=== PATIENT | female | born 1955 | race Caucasian/White ===

== ENCOUNTER 2023-02-20 12:52 | Emergency (ER) | payer MEDICARE, SELFPAY ==
--- NOTE | ~2023-02-20 | XR_ITS ---
EXAMINATION: XR knee LT min 4V DATE: 02/20/2023 13:49 INDICATION: Left knee pain several days post fall TECHNIQUE: Anteroposterior, 2 oblique, sunrise and crosstable lateral views of the left knee were obt ained COMPARISON: None. FINDINGS: Alignment is normal. No fracture. Severe medial and patellofemoral compartment predominant tricompar tmental osteoarthritis at the left knee. There are prominent marginal osteophytes about the patella w ith additional loose osteochondral bodies versus heterotopic ossification along its cephalad margin. No evident joint effusion. Some fine dystrophic calcifications and round phleboliths in the soft tiss ues of the visualized calf. IMPRESSION: 1. Severe medial and patellofemoral compartment, tricompartmental osteoarthritis at the left knee. No joint effusion or acute osseous abnormality. Reviewed, dictated and finalized at location A. IMPRESSION: 1. Severe medial and patellofemoral compartment, tricompartmental osteoarthriti s at the left knee. No joint effusion or acute osseous abnormality.
[2023-02-20 13:11] VITALS: BP 142/52; PULSE 89; RESP 16; TEMP 36.1; O2SAT 97
--- NOTE | 2023-02-20 13:16 | ED.LOWEXIN ---
HPI - Extremity Injury (Lower) General Chief Complaint: Extremity Injury, Lower Stated Complaint: Fall Injury, Left Knee Pain History of Present Illness HPI Narrative: PATIENT PRESENTS FOR EVALUATION OF LEFT NEE PAIN PAIN WITH AMBULATION Related Data Home Medications Medication Instructions Recorded Confirmed atorvastatin 40 mg tablet mg 02/20/23 bupropion HCl 300 mg 24 hr tablet, mg PO 02/20/23 extended release buspirone 7.5 mg tablet mg 02/20/23 duloxetine 60 mg capsule,delayed mg PO 02/20/23 release hydrochlorothiazide 50 mg tablet mg 02/20/23 hydrocodone 7.5 mg-acetaminophen tablet 02/20/23 325 mg tablet lorazepam 0.5 mg tablet mg 02/20/23 meloxicam 15 mg tablet mg 02/20/23 metformin 1,000 mg tablet mg 02/20/23 tirzepatide 7.5 mg/0.5 mL mg subcut 02/20/23 subcutaneous pen injector (Mounlandyro) Allergies Allergy/AdvReac Type Severity Reaction Status Date / Time No Known Allergies Allergy Unverified 04/26/18 18:03 Review of Systems Review of Systems: CONSTITUTIONAL: DENIES FEVER, CHILLS, OR SWEATS. EYES: DENIES VISUAL CHANGES, REDNESS, OR DISCHARGE. ENT: DENIES RHINORRHEA, CONGESTION, SORE THROAT, OR OTALGIA. CARDIOVASCULAR: DENIES CHEST PAIN, PALPITATIONS, OR EDEMA. RESPIRATORY: DENIES COUGH OR DYSPNEA. GASTROINTESTINAL: DENIES ABDOMINAL PAIN, NAUSEA, VOMITING, OR DIARRHEA. GENITOURINARY: DENIES DYSURIA OR HEMATURIA. SKIN: DENIES RASH OR ITCHING. MUSCULOSKELETAL: DENIES BACK PAIN, JOINT PAIN, OR MYALGIA. NEUROLOGIC: DENIES HEADACHE, NUMBNESS, OR WEAKNESS. PSYCHIATRIC: DENIES ANXIETY OR DEPRESSION. PMFSH Comments AT TIME OF SIGNATURE, AGREE WITH NURSING PAST MEDICAL, SURGICAL, SOCIAL AND FAMILY HISTORY. THERE IS NO RELEVANT FAMILY HISTORY PERTINENT TO THE PRESENTING COMPLAINT Exam Narrative: GENERAL: WELL-APPEARING, WELL-NOURISHED, AND IN NO ACUTE DISTRESS. HEAD: NORMOCEPHALIC, ATRAUMATIC. EYES: PERRLA AND EOMI. ENT: NARES CLEAR, NO RHINORRHEA OR EPISTAXIS. MUCOUS MEMBRANES MOIST. NECK: SUPPLE. CHEST: CLEAR TO AUSCULTATION. NO RESPIRATORY DISTRESS. HEART: REGULAR RATE AND RHYTHM. NO MURMUR HEARD. NORMAL PERIPHERAL PULSES. ABDOMEN: SOFT, NONTENDER, NONDISTENDED, NORMAL ACTIVE BOWEL SOUNDS. EXTREMITIES: NORMAL RANGE OF MOTION. NO EDEMA.GENERAL: WELL-APPEARING, WELL-NOURISHED, AND IN NO ACUTE DISTRESS. HEAD: NORMOCEPHALIC, ATRAUMATIC. EYES: PERRLA AND EOMI. ENT: NARES CLEAR, NO RHINORRHEA OR EPISTAXIS. MUCOUS MEMBRANES MOIST. NECK: SUPPLE. CHEST: CLEAR TO AUSCULTATION. NO RESPIRATORY DISTRESS. HEART: REGULAR RATE AND RHYTHM. NO MURMUR HEARD. NORMAL PERIPHERAL PULSES. ABDOMEN: SOFT, NONTENDER, NONDISTENDED, NORMAL ACTIVE BOWEL SOUNDS. EXTREMITIES: NORMAL RANGE OF MOTION. NO EDEMA. SKIN: WARM, DRY, NO RASH. NEURO: NO FOCAL DEFICITS. ALERT AND ORIENTED X3. ABHISHEK COMA SCALE EYE OPENING: SPONTANEOUS 4 ABHISHEK COMA SCALE MOTOR: OBEYS COMMANDS 6 ABHISHEK COMA SCALE VERBAL: ORIENTED 5 ABHISHEK COMA SCALE TOTAL 15 SKIN: WARM, DRY, NO RASH. NEURO: NO FOCAL DEFICITS. ALERT AND ORIENTED X3. ABHISHEK COMA SCALE EYE OPENING: SPONTANEOUS 4 ABHISHEK COMA SCALE MOTOR: OBEYS COMMANDS 6 ABHISHEK COMA SCALE VERBAL: ORIENTED 5 ABHISHEK COMA SCALE TOTAL 15 Course Course Level of Care: Express Care Visit Vital Signs Vital signs: Vital Signs Temperature 36.1 C L 02/20/23 13:11 Pulse Rate 89 02/20/23 13:11 Respiratory Rate 16 02/20/23 13:11 Blood Pressure 142/52 H 02/20/23 13:11 Pulse Oximetry 97 02/20/23 13:11 Oxygen Delivery Room Air 02/20/23 13:11 Temperature 36.1 C L 02/20/23 13:11 Pulse Rate 89 02/20/23 13:11 Respiratory Rate 16 02/20/23 13:11 Blood Pressure 142/52 H 02/20/23 13:11 Pulse Oximetry 97 02/20/23 13:11 Oxygen Delivery Room Air 02/20/23 13:11 PLEASE RUIZ SCHEDULE A FOLLOWUP VISIT WITH YOUR PERSONAL PHYSICIAN FOR FURTHER EVALUATION AND TREATMENT. INCLUDING RECHECK AND DISCUSSION OF YOUR BLOOD PRESSURE. IF YOUR SYMPTOMS PER
== END 2023-02-20 14:21 | disposition home or self-care (01) ==
PROVIDERS: Emergency Provider Nurse Practitioner Family
DX: S80.02XA Contusion of left knee, initial encounter (principal); Z79.899 Other long term (current) drug therapy; Z79.1 Long term (current) use of non-steroidal anti-inflammatories (NSAID); Z79.84 Long term (current) use of oral hypoglycemic drugs; W19.XXXA Unspecified fall, initial encounter
CPT/HCPCS: 73564; 99203; G0463

== ENCOUNTER 2024-09-14 13:29 | Outpatient (CLI) | payer OTHER, SELFPAY ==
--- OUTSIDE RECORDS SUMMARY | 2024-09-14 13:39 | XMS_ITS ---
Author Organization [facility] Address [address] [place] [address] Care Team Providers Care Grade Teacher Name Role Phone Maximus Doan MD PhD Unavailable Morena Quach NP Unavailable [phone] Gillian Perea MD Primary Care Provider Active Problems Problem Noted Date Diagnosed Date Generalized weakness 06/21/2024 Fall 06/21/2024 Screening for colon cancer 02/24/2024 Dyspepsia 02/24/2024 Nausea 02/24/2024 Hyperkalemia 08/26/2022 Assessment & Plan (08/26/2022 10:16 AM CDT): Hold lisinopril, hydrate well, and recheck labs in 2-3 days. Elevated serum creatinine 08/26/2022 Assessment & Plan (08/26/2022 10:16 AM CDT): Hold lisinopril, hydrate well, and recheck labs in 2-3 days. Elevated triglycerides with high cholesterol 01/2023 Assessment & Plan (08/26/2022 10:17 AM CDT): Continue atorvastatin and work on low carb/diabetic diet. Elevated TSH 08/26/2022 Assessment & Plan (08/26/2022 10:17 AM CDT): Elevated TSH with normal T4. Discussed symptoms that would warrant further investigation but none currently, so will just monitor. Chronic right shoulder pain 08/19/2022 Assessment & Plan (08/19/2022 10:57 AM CDT): Ongoing a few months, worsened in the last week or so. Recommend seeing her ortho this week for eval/treatment. Annual physical exam 08/19/2022 Assessment & Plan (08/19/2022 11:00 AM CDT): Annual mamm and WWE DEXA due Flu shot annually Tdap due-we are out of stock today but we discussed Shingrix completed 2021 Prevnar 20 today COVID vaccinated C scope due 2023 Generally in good health. HM updated as per overview. Check routine labwork. Discussed proper diet, regular exercise, adequate water intake, adequate sleep. Information given on health maintenance. Vitamin D deficiency 08/19/2022 Assessment & Plan (08/19/2022 11:01 AM CDT): Supposed to take once weekly but has not been consistently. Subjective memory complaints 03/11/2022 Assessment & Plan (08/19/2022 10:57 AM CDT): Saw Dr. Pacheco for this. [place] to be secondary to gabapentin. Morbid (severe) obesity due to excess calories 0 07/15/2021 Assessment & Plan (08/19/2022 10:55 AM CDT): Not exercising or eating well since her mom got sick. Body mass index (BMI) 45.0-49.9, adult 2 Essential tremor 07/12/2020 Assessment & Plan (08/19/2022 10:58 AM CDT): No meds, very slight right now. DM type 2 with diabetic peripheral neuropathy (C MS/HCC) 07/12/2020 Assessment & Plan (08/26/2022 10:15 AM CDT): She is working on getting Mounjaro, needs PA. Assessment & Plan (08/19/2022 11:03 AM CDT): On gabapentin. Foot exam done today. Taking metformin and glipizide. Has not noticed much difference with Ozempic. Discussed Mounjaro. Follow up pending A1C results and ability to get Mounjaro. On ACEI and statin. 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 Mixed anxiety depressive disorder 09/25/2014 Overview (07/23/2016): DEPRESSION AND ANXIETY Assessment & Plan (08/19/2022 10:56 AM CDT): Uncontrolled since her mom became ill. Increase bupropion to 300mg. Intervertebral disc rupture 09/02/2013 Overview (07/22/2016): Ruptured lumbar disc Asthma 09/02/2013 Overview (07/22/2016): ASTHMA NOS Assessment & Plan (08/19/2022 10:58 AM CDT): On Symbicort and has prn albuterol. Leucocytosis 09/02/2013 Overview (07/22/2016): Leukocytosis Assessment & Plan (08/26/2022 10:15 AM CDT): Referral placed to hematology. Irritable bowel syndrome 09/02/2013 Overview (07/23/2016): IRRITABLE BOWEL SYNDROME Assessment & Plan (08/19/2022 10:55 AM CDT): Takes lomotil and welchol. Next c scope 2023. History of basal cell carcinoma 09/02/2013 Overview (07/23/2016): History of basal cell cancer Assessment & Plan (08/19/2022 10:11 AM CDT): Sees Dr Ritter derm Glaucoma 09/02/2013 Overview (07/24/2016): GLAUCOMA NOS Assessment & Plan (08/19/2022 10:09 AM CDT): Follows with Dr. Graf. Atopic rhinitis 09/02/2013 Overview (07/24/2016): ALLERGIC RHINITIS NOS Assessment & Plan (08/19/2022 10:09 AM CDT): No meds. More weather/seasonal related. Osteoarthritis 09/02/2013 Overview (07/24/2016): OA (osteoarthritis) Assessment & Plan (08/19/2022 10:56 AM CDT): Takes meloxicam, gabapentin, and gets injections in her knee. Status post endometrial ablation 01/09/2011 Actinic keratosis 11/10/2010 Current Treatment and Therapy Plans No current plan information found. Past Treatment and Therapy Plans No past plan information found. Lifetime Dose Tracking * Chemical Lifetime Dose Automatic Entry Manual Entr y Fluoro Time 16.481 minutes 16.481 minutes 0 minutes Air kerma at the reference point (Ka,r) 73.456 mGy 7 3.456 mGy 0 mGy DLP 213 mGycm 213 mGycm 0 mGycm Resolved Problems Problem Noted Date Diagnosed Date Resolved Date Fatigue 07/12/2020 08/19/2022 Memory loss 07/12/2020 08/19/2022 Dyspepsia 05/17/2018 08/19/2022 Overview (05/17/2018): Added automatically from request for surgery [id number] Foreign body in right ear 03/18/2018 No diagnosis on [place] 01/24/201808/19 Bilateral sciatica 01/17/2018 Elevated hemoglobin A1c 09/25/2014 05/06/2022 Overview (07/24/2016): High hemoglobin A1c level Chronic sinusitis 09/02/2013 08/19/2022 Overview (07/23/2016): Chronic sinusitis Adiposity 09/02/2013 08/19/2022 Overview (07/24/2016): Obesity Arthritis 08/19/2022 Leg pain 08/19/2022 Knee pain 08/19/2022 Pain in both feet 08/19/2022
--- OUTSIDE RECORDS SUMMARY | 2024-09-14 13:39 | XMS_ITS | Encounter Summary ---
Author Organization [facility] Healthcare Address [address] [place] [address] Care Team Providers Care Business Excellence Leader Name Role Phone Michael Castaneda MD Primary Care Provider [phone] Luisa Hope MD Primary Care Provider [phone] Wai De Oliveira MD Primary Care Provider [phone] Luisa Hope MD Primary Care Provider + [phone] Maximus Doan MD PhD Unavailable [phone] Morena Quach HEPATOLOGIST Unavailable [phone] Unknown, Notinfile Primary Care Provider Unavail able Gillian Perea MD Primary Care Provider Gillian Perea MD Primary Care Provider [phone] Juliana Silva [facility] Unavailable Encounter Details Date Type Department Care Team (Late st Contact Info) Description 08/02/[address] [facility] [address] [place] [address] Bora Reddy, RT Social History Tobacco Use Types Packs/Day Years Used Date Smoking Tobacco: Never Smokeless Tobacco: Never Alcohol Use Standard Drinks/Week Comments Yes 0 (1 standard drink = 0.6 oz pur e alcohol) Comments No Sex and Gender Information Value Date Recorded Sex Assigned at Not on file Legal Sex Female 11:31 PM ACCREDITATION MANAGER Gender Identity Female 07/02/2020 10:11 AM CDT Sexual Orientation Straight 07/02/2020 10 :11 AM CDT documented as of this encounter Plan of Treatment Not on file documented as of this encounter Goals Goal Patient Goal Type Associated Problems Recent Progress Patient-Stated? Author CCM Chronic Pain Care Plan Chronic Care Management Coni Sparks Note: Problem: Chronic Pain Goals: 1. Minimize further functional decline 2. Maximize quality of life 3. Control pain Strategies: - Activity/exercise program recommendation - Conservative stepwise pain medicine strategy with multi-disciplinary approach - Recommend healthy lifestyle strategies and compensatory methods as needed documented as of this encounter Visit Diagnoses Not on filedocumented in this encounter Additional Health Concerns Infection Onset Date Last Indicated Resolved Time COVID: Suspected 06/20/2024 06/20/2024 06/20/2024 11:58 PM ACCREDITATION MANAGER documented as of this encounter Care Teams Business Excellence Leader Relationship Specialty Start Date End Date Michael Castaneda MD PCP - General 06/17/16 11/25/20 Luisa Hope MD PCP - General Family Medicine 11/26/20 02/01/22 Wai De Oliveira MD [address] [place] [address] PCP - General Internal Medicine 02/02/22 03/30/22 Luisa Hope MD [address] [place] [address] PCP - General Family Medicine 03/31/22 11/09/22 Unknown, Notinfile PCP - General 12/29/22 02/14/23 Gillian Perea MD [address] [place] [address] PCP - General Family Medicine 02/15/23 04/13/23 Gillian Perea MD [address] [facility] [address] [address] PCP - General Family Medicine 04/14/23 Maximus Doan MD PhD [address] [place], [place] [id number] Medical Oncologist/Field Sales Specialist Hematology and Oncology 08/28/22 Morena Quach NP [address] [place] [address] Nurse Practitioner Internal Medicine 08/28/22 Juliana Silva, [address] [place] [address] Pharmacist Pharmacy 11/12/23 01/11/24 documented as of this encounter
--- OUTSIDE RECORDS SUMMARY | 2024-09-14 13:39 | XMS_ITS | Encounter Summary ---
Author Organization [facility] Healthcare Address [address] [place] [address] Care Team Providers Care Results Technician Name Role Phone Maximus Doan MD PhD Unavailable [phone] Morena Quach NP Unavailable [phone] Gillian Perea MD Primary Care Provider Reason for Visit * Reason Comments Chart Review Med rec Encounter Details Date Type Department Care Team (Late st Contact Info) Description 09/13/2024 ACO Quality [facility] Accountable Care Organization [address] [place], [place] [id number] Farida Pabon MA [address] [place] [address] [address] [place], [place] [id number] Social History Tobacco Use Types Packs/Day Years Used Date Smoking Tobacco: Never Smokeless Tobacco: Never Alcohol Use Standard Drinks/Week Comments Yes 0 (1 standard drink = 0.6 oz pur e alcohol) [facility] Utilities Answer Date Recorded In the past 12 months has [employer], gas, oil, or water Bleacher Report threatened to shut off services in your home? No 06/21/2024 Social Connection and Isolat ion Panel [NHANES] Answer Date Recorded In a typical week, how many times do you talk on the phone with family, friends, or neighbors? More than three times a week 06/21/2024 How often do you get togethe r with friends or relatives? More than three times a week 06/21/2024 How often do you attend [facility] or latter-day services? More than 4 times per year 06/21/2024 Do you belong to any clubs o r organizations such as anabaptist groups, unions, fraternal or athletic groups, or school groups? No 06/21/2024 How often do you attend meet ings of the clubs or organizations you belong to? Never 06/21/2024 Are you , , di vorced, , never , or living with a partner? 06/21/2024 Overall Financial Resource Strain (CARDIA) Answe r Date Recorded How hard is it for you to pa y for the very basics like food, housing, medical care, and heating? Not hard at all 06/21/2024 PHQ-2 Answer Date Recorded PHQ-2 Total Score (If total score is 3 or more points, staff should administer the PHQ-9) 0 01/11/2024 Hunger Vital Sign Answer Date Recorded Within the past 12 months, y ou worried that your food would run out before you got the money to buy more. Never true 06/22/19 25 Within the past 12 months, t he food you bought just didn't last and you didn't have money to get more. Never true 06/21/2024 PRAPARE - Transportation Answer Date Re corded In the past 12 months, has l ack of transportation kept you from medical appointments or from getting medications? No 08/2024 In the past 12 months, has l ack of transportation kept you from meetings, work, or from getting things needed for daily living? No 06/21/2024 Housing Stability Vital Sign Answer [place] e Recorded In the last 12 months, was t here a time when you were not able to pay the mortgage or rent on time? No 06/21/2024 In the past 12 months, how m any times have you moved where you were living? 0 06/21/2024 At any time in the past 12 m [facility], were you homeless or living in a jail (including now)? No 06/21/2024 Personal Safety Answer Date Recorded Have you ever been in or are you currently in a harmful physical or emotional relationship or is someone making you feel afraid or unsafe? 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 Author CCM Chronic Pain Care Plan Chronic Care Management No Coni Cast Note: Problem: Chronic Pain Goals: 1. Minimize further functional decline 2. Maximize quality of life 3. Control pain Strategies: - Activity/exercise program recommendation - Conservative stepwise pain medicine strategy with multi-disciplinary approach - Recommend healthy lifestyle strategies and compensatory methods as needed documented as of this encounter Visit Diagnoses Not on filedocumented in this encounter Care Teams Results Technician Relationship Specialty Start Date End Date Gillian Perea MD [address] [place] [address] [address] PCP - General Family Medicine 04/14/23 Maximus Doan MD PhD [address] [place] [address] Medical Oncologist/Scrap Sorter Hematology and Oncology 08/28/22 Morena Quach NP [address] [place] [address] Nurse Practitioner Internal Medicine 08/28/22 documented as of this encounter
--- OUTSIDE RECORDS SUMMARY | 2024-09-14 13:39 | XMS_ITS | Encounter Summary ---
Author Organization [facility] Healthcare Address [address] [place] [address] Care Team Providers Care Director Of State Name Role Phone Michael Castaneda MD Primary Care Provider [phone] Luisa Hope MD Primary Care Provider [phone] Wai De Oliveira MD Primary Care Provider [phone] Luisa Hope MD Primary Care Provider [phone] Maximus Doan MD PhD Unavailable Morena Quach OVERSEER [employer] Unavailable [phone] Unknown, Notinfile Primary Care Provider Unavail able Gillian Perea MD Primary Care Provider Gillian Perea MD Primary Care Provider Juliana Silva [facility] Unavailable Encounter Details Date Type Department Care Team (Late st Contact Info) Description 12/07/2019 Telephone [facility]) [address] [place] [address] Christopher Mathews, RT Social History Tobacco Use Types Packs/Day Years Used Date Smoking Tobacco: Never Smokeless Tobacco: Never Alcohol Use Standard Drinks/Week Comments Yes 0 (1 standard drink = 0.6 oz pur e alcohol) Comments No Sex and Gender Information Value Date Recorded Sex Assigned at Not on file Legal Sex Female 11:31 PM PLATING EQUIPMENT TENDER Gender Identity Female 07/02/2020 10:11 AM CDT [...] Date Last Indicated Resolved Time COVID: Suspected 12/08/2019 12/08/2019 12/09/2019 2:26 PM CDT Respiratory Infection ([place]), contact + droplet Comment:Automatically added due to negative COVID-19 result. 12/09/2019 12/09/2019 12/23/2019 3:0 5 AM CDT COVID: Suspected 03/11/2020 03/11/2020 03/12/2020 5:21 AM PLATING EQUIPMENT TENDER Respiratory Infection ([place]), contact + droplet Comment:Automatically added due to negative COVID-19 result. 03/12/2020 03/12/2020 03/26/2020 3:0 6 AM PLATING EQUIPMENT TENDER COVID: Suspected 03/14/2020 03/14/2020 03/15/2020 5:45 AM PLATING EQUIPMENT TENDER COVID: Suspected 03/20/2020 03/20/2020 03/21/2020 10:52 PM PLATING EQUIPMENT TENDER COVID: Suspected 06/20/2024 06/20/2024 06/20/2024 11:58 PM PLATING EQUIPMENT TENDER documented as of this encounter Care Teams Director Of State Relationship Specialty Start Date End Date Michael Castaneda MD PCP - General 06/17/16 11/25/20 Luisa Hope MD PCP - General Family Medicine 11/26/20 02/01/22 Wai De Oliveira MD [address] [address] PCP - General Internal Medicine 02/02/22 03/30/22 Luisa Hope MD [address] [facility] [address] [place] [address] PCP - General Family Medicine 03/31/22 11/09/22 Unknown, Notinfile PCP - General 12/29/22 02/14/23 Gillian Perea MD [address] [facility] [address], [place] [address] PCP - General Family Medicine 02/15/23 04/13/23 Gillian Perea MD [address] [facility] [address] [place] [address] PCP - General Family Medicine 04/14/23 Maximus Doan MD PhD [address] [place] [address] Medical Oncologist/Dietary Supervisor Hematology and Oncology 08/28/22 Morena Quach NP [address] [place] [address] Nurse Practitioner Internal Medicine 08/28/22 Juliana Silva, [address] [place] [address] Pharmacist Pharmacy 11/12/23 01/11/24 documented as of this encounter
--- OUTSIDE RECORDS SUMMARY | 2024-09-14 13:39 | XMS_ITS | Encounter Summary ---
Author Organization [facility] Healthcare Address [address] [place] [address] Care Team Providers Care Security Shift Manager Name Role Phone Luisa Hope MD Primary Care Provider [phone] Wai De Oliveira MD Primary Care Provider [phone] Luisa Hope MD Primary Care Provider [phone] Maximus Doan MD PhD Unavailable Morena Quach [employer] TE[employer] Unavailable [phone] Unknown, Notinfile Primary Care Provider Unavail able Gillian Perea MD Primary Care Provider Gillian Perea MD Primary Care Provider Juliana Silva [facility] Unavailable Encounter Details Date Type Department Care Team (Late st Contact Info) Description 02/28/2021 Telephone [facility] [place] [address] Morena Lamar, RT Social History Tobacco Use Types Packs/Day Years Used Date Smoking Tobacco: Never Smokeless Tobacco: Never Alcohol Use Standard Drinks/Week Comments Yes 0 (1 standard drink = 0.6 oz pur e alcohol) PHQ-2 Answer Date Recorded PHQ-2 Total Score (If total score is 3 or more points, staff should administer the PHQ-9) 0 11/26/2020 Comments No Sex and Gender Information Value Date Recorded Sex Assigned at Not on file Legal Sex Female 11:31 PM MANAGER FOREIGN Gender Identity Female 07/02/2020 10:11 AM CDT [...] COVID: Suspected 06/20/2024 06/20/2024 06/20/2024 11:58 PM MANAGER FOREIGN documented as of this encounter Care Teams Security Shift Manager Relationship Specialty Start Date End Date Luisa Hope MD PCP - General Family Medicine 11/26/20 02/01/22 Wai De Oliveira MD [address] [place] [address] PCP - General Internal Medicine 02/02/22 03/30/22 Luisa Hope MD [address], [place] [address] PCP - General Family Medicine 03/31/22 11/09/22 Unknown, Notinfile PCP - General 12/29/22 02/14/23 Gillian Perea MD [address], [place] [address] PCP - General Family Medicine 02/15/23 04/13/23 Gillian Perea MD [address] [facility] [address], [place] [address] PCP - General Family Medicine 04/14/23 Maximus Doan MD PhD [address] [place] [address] Medical Oncologist/Client Engagement Manager Hematology and Oncology 08/28/22 Morena Quach NP [address] [place] [address] Nurse Practitioner Internal Medicine 08/28/22 Juliana Silva [address] [place] [address] Pharmacist Pharmacy 11/12/23 01/11/24 documented as of this encounter
--- OUTSIDE RECORDS SUMMARY | 2024-09-14 13:40 | XMS_ITS | Referral Summary ---
Author Organization [facility] al Address [address] [place] [address] Care Team Providers Care Contractor Buyer Name Role Phone Maximus Doan MD PhD Unavailable Morena Quach NP Unavailable [phone] Gillian Perea MD Primary Care Provider Encounters Date Type Department Care Team Description 09/13/2024 ACO Quality [facility] Accountable Care Organization [address] [place] [address] Farida Pabon MA 09/08/2024 Telephone [facility] Medical Group Primary Care at [address] [place] [phone] Gillian Perea MD Medical Records Request 09/01/2024 Telephone [facility] Primary Care at [address] [place] [phone] Gillian Perea MD 08/21/2024 Telephone [facility] Orthopaedic Surgery [address] [place] [address] Advanced Medicine 6th [place] [address] [place] [phone] Jevon Fonseca MD 08/21/2024 3:20 PM CDT Office Visit [facility] Orthopaedic Surgery [facility] Advanced Medicine 6th [place] [address] [place] [phone] Jevon Fonseca MD Chronic pain of both knees (Primary Dx) 08/18/2024 Telephone [facility] Accountable Care Organization [address] [place] [address] Talia Joyce Unsuccessful Phone Call 1 (Essence dm eye exam) 08/17/2024 Telephone [facility] Medical Group Orthopedics and Sports Medicine at [address] [phone] Jimi Max MD 08/12/2024 ACO Quality [facility] Care [address] [address] Talia Joyce 08/11/2024 Telephone [facility] Primary Care at [address] [phone] Gillian Perea MD Referral Request 07/27/2024 Telephone [facility] Primary Care at [address] [phone] Gillian Perea MD Symptom Based Call 07/18/2024 ACO Clinical Pharmacist [address] [address] Juliana Silva [facility] 2024 Telephone [facility] Primary Care at [address] [phone] Gillian Perea MD Symptom Based Call 07/12/2024 Orders Only [facility] Medical [facility] Primary Care at [address] [place] [phone] Gillian Perea MD Moderate asthma, unspecified whether complicated, unspecified whether persistent (Primary Dx); Shortness of breath 07/12/2024 Telephone [facility] Primary Care at [address] [phone] Gillian Perea MD Medical Question/Miscellane ous 07/10/2024 Telephone [facility] Primary Care at [facility] [address], [place] [address] Gillian Perea MD Med Refill 07/10/2024 3:56 PM CDT - 07/10/2024 11:59 PM CDT Hospital Encounter [facility] - Imaging [address] [place] [address] Moderate asthma, unspecified whether complicated, unspecified whether persistent Discharge Disposition: Discharge to home or self care 07/10/2024 2:30 PM CDT Office Visit [facility] Medical [facility] Primary Care at [facility] [address], [place] [address] Gillian Perea MD Moderate asthma, unspecified whether complicated, unspecified whether persistent (Primary Dx); Obesity (BMI 35.0-39.9 without comorbidity) 07/07/2024 Nurse Triage [facility] Medical [facility] Primary Care at [place] [phone], [place] [address] Gillian Perea MD Moderate persistent asthma without complication 07/03/2024 Telephone [facility] Medical [facility] Primary Care at [place] [address], [place] [address] Gillian Perea MD Medical Question/Miscellane ous 06/22/2024 COOKIE IP Outreach [facility] Accountable Care Organization [address] [place] [address] Noreen Wharton MA 06/22/2024 Telephone [facility] [address] [place] [phone] Olesya Dickerson, RN 06/22/2024 Telephone [facility] [address] [place] [phone] Olesya Dickerson, RN 06/20/2024 9:17 PM INVERFORM MACHINE OPERATOR - 06/21/2024 6:35 PM INVERFORM MACHINE OPERATOR Hospital Encounter [facility] [address] [place] [address] Anamika Barbosa MD Shimotani, Dorian Genki, DO Jain, Anshu, MD Fall, initial encounter (Primary Dx); Dizziness; Generalized weakness Discharge Disposition: Left Against Medical Advice 06/20/2024 5:47 PM INVERFORM MACHINE OPERATOR - 06/20/2024 11:59 PM INVERFORM MACHINE OPERATOR Hospital Encounter [facility] Emergency, Room R Discharge Disposition: Discharge to home or self care 06/19/2024 Telephone [facility] Medical Group Primary Care at [facility] [address] [place] [address] Gillian Perea MD Referral Request from Last 3 Months Allergies Active Allergy Reactions Criticality Noted Date Comments Amoxicillin Diarrhea Low Reaction: Diarrhea, Amoxicillin-Pot Clavulanate Diarrhea Low 05/03/2023 Barium-Methylcellulose Swelling High 09/05/2019 Throat swelling after oral contrast Furosemide Other (See comments) Low 10/29/2014 Red Dye Other (See comments) Low 10/29/2008 Tetracyclines Rash Medium 10/29/2014 Medications cyanocobalamin (Vitamin B-12) 1,000 mcg tabletIndications :Prevention of Vitamin B12 Deficiency Take 1 tablet (1,000 mcg total) by mouth daily Active busPIRone (BUSPAR) 15 mg tabletIndications :Generalized Anxiety Disorder Take 1 tablet (15 mg total) by mouth 2 (two) times a day 180 tablet 3 024 Active hydroCHLOROthiazi de (HYDRODIURIL) 50 mg tabletIndications :Leg swelling,Primary hypertension TAKE 1 TABLET(50 MG) BY MOUTH DAILY 90 tablet 3 024 Active colesevelam (WELCHOL) 625 mg tablet Take 2 tablets (1,250 mg total) by mouth 2 (two) times a day with meals 360 tablet 3 024 Active meloxicam (MOBIC) 15 mg tabletIndications :Chronic lumbar radiculopathy TAKE 1 TABLET(15 MG) BY MOUTH DAILY 100 tablet 1 024 Active tirzepatide (Mounjaro) 12.5 mg/0.5 mL pen injector injectionIndicati ons:type 2 diabetes mellitus Inject 0.5 mL (12.5 mg total) under the skin every 7 days 9 mL 1 025 Active Additional Information Patient taking differently:12.5 mg subcutaneous Every 7 days,Last dose 6 months ago, Indications: type 2 diabetes mellitus, Reported on 08/21/2024 cholecalciferol (VITAMIN D-3) 50,000 unit capsule Take 1 capsule (50,000 Units total) by mouth once a week 12 capsule 3 025 2025 Active Additional Information Patient taking differently:50,000 Units oral Weekly,Sundays, Reported on 08/21/2024 atorvastatin (LIPITOR) 40 mg tablet Take 1 tablet (40 mg total) by mouth daily Active gabapentin (NEURONTIN) 600 mg tablet Take 1 tablet (600 mg total) by mouth 2 (two) times a day Active hydrOXYzine (VISTARIL) 25 mg capsule Take 1 capsule (25 mg total) by mouth 3 (three) times a day as needed for itching Active buPROPion XL (WELLBUTRIN XL) 300 mg 24 hr tablet TAKE 1 TABLET(300 MG) BY MOUTH EVERY MORNING 100 tablet 1 025 Active diphenoxylate-atr opine (LOMOTIL) 2.5-0.025 mg per tabletIndications :diarrhea Take 1 tablet by mouth 2 (two) times a day with meals 30 tablet 025 Active budesonide-formot Antonio (SYMBICORT) 160-4.5 mcg/actuation inhaler Inhale 2 puffs 2 (two) times a day as needed (SOB) Rinse mouth with water after use. Do not swallow. 1 each 3 Active albuterol HFA (ProAir HFA) 90 mcg/actuation inhalerIndication s:Moderate persistent asthma without complication Inhale 2 puffs every 4 (four) hours as needed for wheezing or shortness of breath 1 each 3 025 2025 Active ondansetron ODT (ZOFRAN-ODT) 4 mg disintegrating tablet DISSOLVE 1 TABLET ON THE TONGUE EVERY 6 HOURS NEEDED FOR NAUSEA 025 Active predniSONE (DELTASONE) 10 mg tablet 4 tabs for 4, 3 tabs 4 days, 2 tabs for 4 days 36 tablet 025 Active cefpodoxime (VANTIN) 200 mg tablet Take 1 tablet (200 mg total) by mouth 2 (two) times a day 14 tablet 025 Active ipratropium (ATROVENT) 0.02 % nebulizer solutionIndicatio ns:Maintenance Therapy for Asthma Take 2.5 mL (0.5 mg total) by nebulization 4 (four) times a day as needed for wheezing or shortness of breath 187.5 mL 4 025 Active fluconazole (DIFLUCAN) 150 mg tablet Take 1 tablet (150 mg total) by mouth daily Take one tab now. Repeat in 7 days if symptoms persist. 2 tablet 025 Active HYDROcodone-aceta minophen (NORCO) 7.5-325 mg per tabletIndications :Pain Take 1 tablet by mouth every 6 (six) hours as needed for pain 120 tablet 025 Active metFORMIN (GLUCOPHAGE) 1,000 mg tablet TAKE 1 TABLET(1000 MG) BY MOUTH TWICE DAILY WITH MEALS 180 tablet 3 025 Active ergocalciferol (VITAMIN D) 50,000 unit capsuleIndication s:Low back pain with radiation,Chronic pain syndrome TAKE 1 CAPSULE (50,000 UNITS TOTAL) BY MOUTH ONCE A WEEK FOR 12 WEEKS [address] capsule [address] (CYMBALTA) 30 mg capsule TAKE 1 CAPSULE(30 MG) BY MOUTH DAILY 90 capsule [address] (CYMBALTA) 30 mg capsule Take 3 capsules (90 mg total) by mouth nightly 2024 Discontinued Active Problems Problem Noted Date Diagnosed Date [...] AM CDT): Saw Dr. Pacheco for this. [place] to be secondary to gabapentin. Morbid (severe) [...] AM CDT): She is working on getting mine Rios PA. Assessment & Plan (08/19/2022 11:03 AM CDT): On gabapentin. Foot exam done today. Taking metformin and glipizide. Has not noticed much difference with Ozempic. Discussed Gabriel. Follow up pending A1C results and ability to get Eligiounlandyro. On ACEI and statin. Other chronic pain [...] post endometrial ablation 01/09/2011 Actinic keratosis 11/10/2010 Resolved Problems Problem Noted Date Diagnosed Date Resolved Date Fatigue 07/12/2020 08/19/2022 Memory loss 07/12/2020 08/19/2022 Dyspepsia 05/17/2018 08/19/2022 Overview (05/17/2018): Added automatically from request for surgery [id number] Foreign body in right ear 03/18/2018 No diagnosis on [place] I 01/24/201808/19 Bilateral sciatica 01/17/2018 Elevated hemoglobin A1c 09/25/2014 05/06/2022 Overview (07/24/2016): High hemoglobin A1c level Chronic sinusitis 09/02/2013 08/19/2022 Overview (07/23/2016): Chronic sinusitis Adiposity 09/02/2013 08/19/2022 Overview (07/24/2016): Obesity Arthritis 08/19/2022 Leg pain 08/19/2022 Knee pain 08/19/2022 Pain in both feet 08/19/2022 Immunizations Immunization Administration Dates Next Due Influenza, Quadrivalent, Hig h Dose, Preservative Free, Intrr 02/15/2023 Influenza, Quadrivalent, Spl it, Preservative Free, Intramuscular 02/02/2022 Influenza, Split 01/17/2010 Influenza, Trivalent, Adjuva nted, Intramuscular 02/12/2024 Influenza, Trivalent, IM (MDV) 02/08/2021,2012,02/12/2012 Influenza, Trivalent, Split, Preservative Free, Intradermal 12/18/2013 Influenza, Unspecified 01/11/2024(Deferr ed: Patient Refused),01/17/2021,01/18/2020 Pfizer SARS-CoV-2 Monovalent Vaccination (12+ Yrs) PURPLE 04/26/2020,04/08/2020 Pneumococcal Conjugate Pcv20 08/19/2022 Pneumococcal Polysaccharide PPV23 02/27/2021 Tdap 01/21/2011 ZOSTER Recombinant 06/28/2021,06/17/2021, 022 Social History Tobacco Use Types Packs/Day Years Used Date Smoking Tobacco: Never Smokeless Tobacco: Never Tobacco Cessation:Counseling Given: Not Answered Alcohol Use Standard Drinks/Week Comments Yes 0 (1 standard drink = 0.6 oz pur e alcohol) [facility] Utilities Answer Date Recorded In the past 12 months has th e electric, gas, oil, or water company threatened to shut off services in your [...] week 06/21/2024 How often do you attend chur ch or worship services? More than 4 times per year 06/21/2024 Do you belong to any clubs o r organizations such as restorationist groups, unions, fraternal or athletic groups, or [...] No 06/21/2024 Housing Stability Vital Sign Answer Augusto e Recorded In the last 12 months, was t here a time when you were not able to pay the mortgage or rent on time? No 06/21/2024 In the past 12 months, how m any times have you moved where you were living? 0 06/21/2024 At any time in the past 12 m [facility], were you homeless or living in a snf (including now)? No 06/21/2024 Personal Safety Answer Date Recorded Have you ever been in or are you currently in a harmful physical or emotional relationship or is someone making you feel afraid or unsafe? 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 file Not on file Not on file Last Filed Vital Signs Vital Sign Reading Time Taken Comments Blood Pressure 148/66 07/10/2024 2:58 PM CDT Pulse 88 07/10/2024 2:58 PM CDT Temperature 36.1 C (97 F) 07/10/2024 2:58 PM CDT Respiratory Rate 12 07/10/2024 2:58 PM CDT Oxygen Saturation 96% 07/10/2024 2:58 PM CDT Inhaled Oxygen Concentration - - Weight 96.6 kg (213 lb) 07/10/2024 2:58 PM CDT Height 157.5 cm (5' 2) 07/10/2024 2:58 PM CDT Body Mass Index 38.96 07/10/2024 2:58 PM CDT Plan of Treatment Not on file Goals Goal Patient Goal Type Associated Problems [...] lifestyle strategies and compensatory methods as needed Procedures Procedure Name Priority Date/Time Associated Diagnosis Comments XR CHEST PA LATERAL 2 VIEWS Schedule Routine, Read Routine (OP Routine) 07/10/2024 4:20 PM CDT Moderate asthma, unspecified whether complicated, unspecified whether persistent POCT GLUCOSE DEVICE Routine 06/21/2024 6:11 PM INVERFORM MACHINE OPERATOR POTASSIUM LEVEL Timed 06/21/2024 5:32 PM INVERFORM MACHINE OPERATOR POCT GLUCOSE DEVICE Routine 06/21/2024 2:09 PM INVERFORM MACHINE OPERATOR ADD ON LAB TEST Add-On 06/21/2024 1:30 PM INVERFORM MACHINE OPERATOR ADD ON LAB TEST Add-On 06/21/2024 1:30 PM INVERFORM MACHINE OPERATOR POCT GLUCOSE DEVICE Routine 06/21/2024 10:18 AM INVERFORM MACHINE OPERATOR POCT GLUCOSE DEVICE Routine 06/21/2024 6:26 AM INVERFORM MACHINE OPERATOR THYROID FUNCTION CASCADE Routine 06/21/2024 4:47 AM INVERFORM MACHINE OPERATOR CREATINE KINASE (CK), TOTAL Routine 06/21/2024 4:47 AM INVERFORM MACHINE OPERATOR EGFR Routine 06/21/2024 4:47 AM INVERFORM MACHINE OPERATOR DIFFERENTIAL AUTO Routine 06/21/2024 4:47 AM INVERFORM MACHINE OPERATOR CBC WITH AUTO DIFFERENTIAL Routine 06/21/2024 4:47 AM INVERFORM MACHINE OPERATOR MAGNESIUM Routine 06/21/2024 4:47 AM INVERFORM MACHINE OPERATOR BASIC METABOLIC PANEL Routine 06/21/2024 4:47 AM INVERFORM MACHINE OPERATOR POCT GLUCOSE DEVICE Routine 06/21/2024 3:39 AM INVERFORM MACHINE OPERATOR POCT GLUCOSE DEVICE Routine 06/21/2024 12:42 AM INVERFORM MACHINE OPERATOR ECG 12-LEAD STAT 06/20/2024 11:24 PM INVERFORM MACHINE OPERATOR CT HEAD WO CONTRAST ED 06/20/2024 11:22 PM INVERFORM MACHINE OPERATOR TROPONIN T HIGH-SENSITIVITY 2-HOUR Timed 06/20/2024 10:42 PM INVERFORM MACHINE OPERATOR RESPIRATORY PATHOGEN PANEL STAT 06/20/2024 10:42 PM INVERFORM MACHINE OPERATOR EGFR STAT 06/20/2024 8:43 PM INVERFORM MACHINE OPERATOR DIFFERENTIAL AUTO STAT 06/20/2024 8:43 PM INVERFORM MACHINE OPERATOR PRO B-TYPE NATRIURETIC PEPTIDE STAT 06/20/2024 8:43 PM INVERFORM MACHINE OPERATOR TROPONIN T HIGH-SENSITIVITY SERIES (BASELINE, 2HR, 4HR, 6HR) STAT 06/20/2024 8:43 PM INVERFORM MACHINE OPERATOR CBC WITH AUTO DIFFERENTIAL STAT 06/20/2024 8:43 PM INVERFORM MACHINE OPERATOR COMPREHENSIVE METABOLIC PANEL STAT 06/20/2024 8:43 PM INVERFORM MACHINE OPERATOR XR CHEST PA LATERAL 2 VIEWS ED 06/20/2024 8:23 PM INVERFORM MACHINE OPERATOR POCT GLUCOSE DEVICE Routine 06/20/2024 6:58 PM INVERFORM MACHINE OPERATOR ECG 12-LEAD STAT 06/20/2024 6:49 PM INVERFORM MACHINE OPERATOR HEMOGLOBIN A1C Routine 05/23/2024 8:38 AM INVERFORM MACHINE OPERATOR Diabetic polyneuropathy associated with type 2 diabetes mellitus (HCC) ALBUMIN CREATININE RATIO, URINE Routine 01/11/2024 7:04 PM CDT DM type 2 with diabetic peripheral neuropathy (HCC) LIPID PANEL Routine 01/11/2024 2:27 PM CDT Encounter for annual physical exam Pure hypercholesterolemia DIABETIC EYE EXAM Routine 03/16/2023 SCREENING MAMMOGRAM BILATERAL W WALDO Schedule Routine, Read Routine (OP Routine) 07/04/2021 12:44 PM CDT Screening mammogram, encounter for SERUM HEPATITIS C AB Routine 07/12/2014 6:08 AM CDT COLONOSCOPY REPORT 09/07/2013 from Last 3 Months or Most Recently Relevant to Health Maintenance Results * XR Chest PA Lateral 2 Views (07/10/2024 4:20 PM CDT) Anatomical Region Laterality Modality Body, Chest N/A Computed Radiogr aphy 07/10/2024 4:47 PM CDT Impressions 07/10/2024 4:47 PM CDT 1. Negative chest radiograph. COMMENT: Please see above for additional findings. Electronically signed by: Gagandeep Hart M.D. Narrative 07/10/2024 4:47 PM CDT PA and lateral chest radiograph, 2 views HISTORY: Unspecified asthma, uncomplicated COMPARISON: PA and lateral chest radiograph 06/20/2024 A chest radiograph in the PA and lateral projection was presented. FINDINGS: The osseous structures and chest wall are grossly within expected limits. There is no evidence of pneumothorax. The mediastinum and ritesh within expected limits. The cardiac silhouette within normal size limits. The lateral and posterior costophrenic angles are preserved bilaterally. No definite infiltrates, suspicious opacities or abnormal interstitial markings are appreciated. The included portion of the upper abdomen is within expected limits. Procedure Note Gagandeep Hart MD - 07/10/2024 PA and lateral chest radiograph, 2 views HISTORY: Unspecified asthma, uncomplicated COMPARISON: PA and lateral chest radiograph 06/20/2024 A chest radiograph in the PA and lateral projection was presented. FINDINGS: The osseous structures and chest wall are grossly within expected limits. There is no evidence of pneumothorax. The mediastinum and ritesh within expected limits. The cardiac silhouette within normal size limits. The lateral and posterior costophrenic angles are preserved bilaterally. No definite infiltrates, suspicious opacities or abnormal interstitial markings are appreciated. The included portion of the upper abdomen is within expected limits. IMPRESSION: 1. Negative chest radiograph. COMMENT: Please see above for additional findings. Electronically signed by: Gagandeep Hart M.D. Gillian Perea MD IMG XR PROCEDURES Final Result * POCT glucose (06/21/2024 6:11 PM INVERFORM MACHINE OPERATOR) Glucose, POC 168 70 - 199 mg/dL Comment: For Glucose values <35 mg/dl when Hematocrit is >60 mg/dl,the test may not accurately detect significant hypoglycemia,and testing in the Laboratory should be considered if clinically indicated. Blood 06/21/2024 6:11 PM INVERFORM MACHINE OPERATOR 06/21/2024 6:11 PM INVERFORM MACHINE OPERATOR Dustin Bishop MD LAB POCT ORDERABLES - DEVICE Fin al Result Performing Organization Address [facility] Co de Phone Number [facility] [address] [facility] [place], [place] [id number] * Potassium (06/21/2024 5:32 PM INVERFORM MACHINE OPERATOR) Potassium, pl 3.4 3.3 - 4.9 mmol/L Blood 06/21/2024 5:32 PM INVERFORM MACHINE OPERATOR 06/21/2024 5:36 PM INVERFORM MACHINE OPERATOR Result [facility] Dustin Bishop MD LAB BLOOD ORDERABLES Final Resul t Performing Organization Address [facility] Co de Phone Number [facility] [address] Department [place] [address] * POCT glucose (06/21/2024 2:09 PM INVERFORM MACHINE OPERATOR) Glucose, POC 171 70 - 199 mg/dL Comment: For Glucose values <35 mg/dl when Hematocrit is >60 mg/dl,the test may not accurately detect significant hypoglycemia,and testing in the Laboratory should be considered if clinically indicated. Blood 06/21/2024 2:09 PM INVERFORM MACHINE OPERATOR 06/21/2024 2:09 PM INVERFORM MACHINE OPERATOR Dustin Bishop MD LAB POCT ORDERABLES - DEVICE Fin al Result Performing Organization Address [facility] Co de Phone Number [facility] [address] [facility] [address] [place], [place] [id number] * TSH reflex Free T4 - Add on lab test (06/21/2024 1:30 PM INVERFORM MACHINE OPERATOR) Acceptable Yes Blood 06/21/2024 1:30 PM INVERFORM MACHINE OPERATOR 06/21/2024 1:44 PM INVERFORM MACHINE OPERATOR Narrative [facility] - 06/21/2024 1:44 PM INVERFORM MACHINE OPERATOR Name of Test->TSH reflex Free T4 Dustin Bishop MD LAB BLOOD ORDERABLES Final Resul t Performing Organization Address [facility] de Phone Number [facility] [address] [facility] [place] [address] * CK - Add on lab test (06/21/2024 1:30 PM INVERFORM MACHINE OPERATOR) Acceptable Yes Blood 06/21/2024 1:30 PM INVERFORM MACHINE OPERATOR 06/21/2024 1:44 PM INVERFORM MACHINE OPERATOR Narrative [facility] - 06/21/2024 1:44 PM INVERFORM MACHINE OPERATOR Name of Test->CK Dustin Bishop MD LAB BLOOD ORDERABLES Final Resul t Performing Organization Address [facility] de Phone Number [facility] [address] [facility] [place] [address] * POCT glucose (06/21/2024 10:18 AM INVERFORM MACHINE OPERATOR) Glucose, POC 188 70 - 199 mg/dL Comment: For Glucose values <35 mg/dl when Hematocrit is >60 mg/dl,the test may not accurately detect significant hypoglycemia,and testing in the Laboratory should be considered if clinically indicated. Blood 06/21/2024 10:1 8 AM INVERFORM MACHINE OPERATOR 06/21/2024 10:18 AM INVERFORM MACHINE OPERATOR Dustin Bishop MD LAB POCT ORDERABLES - DEVICE Fin al Result Performing Organization Address [facility] Co de Phone Number [facility] [address] Department [place] [address] * POCT glucose (06/21/2024 6:26 AM INVERFORM MACHINE OPERATOR) Glucose, POC 157 70 - 199 mg/dL Comment: For Glucose values <35 mg/dl when Hematocrit is >60 mg/dl,the test may not accurately detect significant hypoglycemia,and testing in the Laboratory should be considered if clinically indicated. Blood 06/21/2024 6:26 AM INVERFORM MACHINE OPERATOR 06/21/2024 6:26 AM INVERFORM MACHINE OPERATOR Benoit Castillo DO LAB POCT ORDERABLES - DEVICE Final Result Performing Organization Address [facility] Co de Phone Number [facility] [address] Department [place] [address] * (ABNORMAL) eGFR (06/21/2024 4:47 AM INVERFORM MACHINE OPERATOR) eGFR 59(L) >=60 mL/min/1. 73 m2 Comment: Interpretive Data Reference Interval Normal >/= 90 mL/min/1.73m2 Mildly decreased* 60 - 89 mL/min/1.73m2 Mildly to moderately decreased 45 - 59 mL/min/1.73m2 Moderately to severely decreased 30 - 44 mL/min/1.73m2 Severely decreased 15 - 29 mL/min/1.73m2 Kidney Failure < 15 mL/min/1.73m2 *Relative to young adult level Estimated glomerular filtration rate is determined by the 2020 CKD-EPI equation recommended by the National Kid[employer] (A Unifying Approach to GFR Estimation: Recommendations of the NKF-ASK Task Force on Reassessing the Inclusion of Race in Diagnosing Kidney Disease, JASN 2020). The CKD-EPI equation should not be used for patients with unstable renal function and has not been validated in children and those over 70. Current interpretive data was last reviewed 2021. Blood 06/21/2024 4:47 AM INVERFORM MACHINE OPERATOR 06/21/2024 5:22 AM INVERFORM MACHINE OPERATOR us Benoit Castillo DO LAB BLOOD ORDERABLES F inal Result [facility] [address] Department [place] [address] * (ABNORMAL) Differential, auto (06/21/2024 4:47 AM INVERFORM MACHINE OPERATOR) Neutrophil abs 9.4(H) 1.5 - 6.5 K/cumm Imm gran abs 0.1 0.0 - 0.1 K/cumm [facility] Lymphocyte abs 2.9 0.8 - 3.3 K/cumm [facility] Monocyte abs 2.2(H) 0.2 - 0.8 K/cumm [facility] Eosinophil abs 0.1 0.0 - 0.5 K/cumm [facility] Basophil abs 0.1 0.0 - 0.1 K/cumm [facility] Neutrophil pct 63.9 % [facility] Comment: Interpretive Data Percent cell count reference ranges are not reported, since discordance with absolute values may lead to misinterpretation of CBC data. Current Interpretive Data was last revised on 2017. Imm gran pct 0.5 % [facility] Comment: Interpretive Data Percent cell count reference ranges are not reported, since discordance with absolute values may lead to misinterpretation of CBC data. Current Interpretive Data was last revised on 2017. Lymphocyte pct 19.7 % [facility] Comment: Interpretive Data Percent cell count reference ranges are not reported, since discordance with absolute values may lead to misinterpretation of CBC data. Current Interpretive Data was last revised on 2017. Monocyte pct 14.7 % [facility] Comment: Interpretive Data Percent cell count reference ranges are not reported, since discordance with absolute values may lead to misinterpretation of CBC data. Current Interpretive Data was last revised on 2017. Eosinophil pct 0.8 % [facility] Comment: Interpretive Data Percent cell count reference ranges are not reported, since discordance with absolute values may lead to misinterpretation of CBC data. Current Interpretive Data was last revised on 2017. Basophil pct 0.4 % [facility] Comment: Interpretive Data Percent cell count reference ranges are not reported, since discordance with absolute values may lead to misinterpretation of CBC data. Current Interpretive Data was last revised on 2017. Blood 06/21/2024 4:47 AM INVERFORM MACHINE OPERATOR 06/21/2024 5:22 AM INVERFORM MACHINE OPERATOR Benoit Castillo DO LAB BLOOD ORDERABLES F inal Result Performing Organization Address [facility]/ZIP Co de Phone Number [facility] [address] Department of [employer] [place], [place] [id number] * Thyroid Function [place] (06/21/2024 4:47 AM INVERFORM MACHINE OPERATOR) Pathologist [facility] TSH 0.64 0.30 - 4.20 mcIUnit/mL Blood 06/21/2024 4:47 AM INVERFORM MACHINE OPERATOR 06/21/2024 5:22 AM INVERFORM MACHINE OPERATOR Dustin Bishop MD LAB BLOOD ORDERABLES Final Resul t Performing Organization Address [facility] Co de Phone Number [facility] [address] [place] [address] * (ABNORMAL) CBC with auto differential (06/21/2024 4:47 AM INVERFORM MACHINE OPERATOR) WBC 14.8(H) 3.8 - 9.9 K/cumm Hgb 9.3(L) 11.9 - 15.5 g/dL [facility] Hct 28.7(L) 35.6 - 45.5 % [facility] Plt 241 150 - 400 K/cumm [facility] MPV 10.8 9.1 - 12.3 fL [facility] RBC 3.03(L) 3.90 - 5.20 M/cumm [facility] MCV 94.7 81.3 - 96.4 fL [facility] MCH 30.7 27.1 - 33.3 pg [facility] MCHC 32.4 32.3 - 35.7 g/dL [facility] RDW CV 12.7 11.1 - 14.9 % [facility] RDW SD 44.1 35.7 - 48.1 fL [facility] NRBC abs 0.00 0.00 - 0.01 K/cumm [facility] Blood 06/21/2024 4:47 AM INVERFORM MACHINE OPERATOR 06/21/2024 5:22 AM INVERFORM MACHINE OPERATOR Benoit Castillo LAB BLOOD ORDERABLES F inal Result Performing Organization Address [facility] Co de Phone Number [facility] [address] [facility] [place] [address] * Magnesium (06/21/2024 4:47 AM INVERFORM MACHINE OPERATOR) Pathologist [facility] Magnesium 1.8 1.4 - 2.5 mg/dL Blood 06/21/2024 4:47 AM INVERFORM MACHINE OPERATOR 06/21/2024 5:22 AM INVERFORM MACHINE OPERATOR Benoit Castillo DO LAB BLOOD ORDERABLES F inal Result Performing Organization Address [facility] de Phone Number [facility] [address] Department [place] [address] * Creatine kinase (CK), total (06/21/2024 4:47 AM INVERFORM MACHINE OPERATOR) Pathologist [facility] CK 169 30 - 200 Units/L Blood 06/21/2024 4:47 AM INVERFORM MACHINE OPERATOR 06/21/2024 5:22 AM INVERFORM MACHINE OPERATOR Dustin Bishop MD LAB BLOOD ORDERABLES Final Resul t Performing Organization Address [facility] Co de Phone Number [facility] [address] [place] [address] * (ABNORMAL) Basic metabolic panel (06/21/2024 4:47 AM INVERFORM MACHINE OPERATOR) Pathologist [facility] Sodium 138 135 - 145 mmol/L Potassium, pl 2.5(C) 3.3 - 4.9 mmol/L [facility] Comment:Critical result call ed to and read back by Cm Arroyo (RN) on 06/21/24 @ 0605 to [id number] Chloride 100 97 - 110 mmol/L [facility] CO2 26 22 - 32 mmol/L [facility] Anion gap 12 2 - 15 mmol/L [facility] BUN 22 6 - 25 mg/dL [facility] Creatinine 1.05 0.60 - 1.10 mg/dL [facility] Glucose 171 70 - 199 mg/dL [facility] Comment: Interpretive Data Fasting glucose >/= 126 mg/dl is diagnostic for diabetes. Fasting is defined as no caloric intake for at least 8 hours. Fasting glucose between 100 mg/dl to 125 mg/dl is diagnostic of prediabetes. In a patient with classic symptoms of hyperglycemia or hyperglycemic crisis, a random glucose >/= 200 mg/dl is diagnostic for diabetes. In the absence of unequivocal hyperglycemia, results should be confirmed by repeat testing. The classification and Diagnosis of Diabetes Diabetes Care 2021; 46: S19-S40. Current interpretive data was last revised 2022. Calcium 8.2(L) 8.5 - 10.3 mg/dL [facility] Blood 06/21/2024 4:47 AM INVERFORM MACHINE OPERATOR 06/21/2024 5:22 AM INVERFORM MACHINE OPERATOR Benoit Castillo DO LAB BLOOD ORDERABLES F inal Result [facility] [address] Department [place] [address] * (ABNORMAL) POCT glucose (06/21/2024 3:39 AM INVERFORM MACHINE OPERATOR) [facility] Glucose, POC 236(H) 70 - 199 mg/dL Comment: For Glucose values <35 mg/dl when Hematocrit is >60 mg/dl,the test may not accurately detect significant hypoglycemia,and testing in the Laboratory should be considered if clinically indicated. Blood 06/21/2024 3:39 AM INVERFORM MACHINE OPERATOR 06/21/2024 3:39 AM INVERFORM MACHINE OPERATOR Benoit Castillo DO LAB POCT ORDERABLES - DEVICE Final Result Performing Organization Address [facility] Co de Phone Number [facility] [address] Department [place] [address] * POCT glucose (06/21/2024 12:42 AM INVERFORM MACHINE OPERATOR) [facility] Glucose, POC 189 70 - 199 mg/dL Comment: For Glucose values <35 mg/dl when Hematocrit is >60 mg/dl,the test may not accurately detect significant hypoglycemia,and testing in the Laboratory should be considered if clinically indicated. Blood 06/21/2024 12:4 2 AM INVERFORM MACHINE OPERATOR 06/21/2024 12:42 AM INVERFORM MACHINE OPERATOR Anamika Barbosa MD LAB POCT ORDERABLES - DEVICE Final Result Performing Organization Address [facility] de Phone Number [facility] [address] Department [place] [address] * ECG 12 lead (06/20/2024 11:24 PM INVERFORM MACHINE OPERATOR) 06/20/2024 11:2 4 PM INVERFORM MACHINE OPERATOR Narrative [facility] - 06/21/2024 6:53 PM INVERFORM MACHINE OPERATOR Vent Rate: 94 bpm RR Interval: 636 msec SC Interval: 134 msec QRS Duration: 85 msec QT Interval: 305 msec QTC Interval: 357 msec P-R-T [place]: -14 - -14 - 35 degrees IMPRESSION: SINUS RHYTHM WITH FREQUENT VENTRICULAR PREMATURE COMPLEXES IN A PATTERN OF QUADRIGEMINY LOW QRS VOLTAGE IN PRECORDIAL LEADS LEFT VENTRICULAR HYPERTROPHY AND ST-T CHANGE POOR R-WAVE PROGRESSION ABNORMAL ECG Electronically Signed By: Claus Davis MD [facility] Anamika Barbosa MD ECG ORDERABLES Final Result Performing Organization Address [facility] Co de Phone Number [facility] [employer] [facility] [[email or web address]] * CT Head WO Contrast (06/20/2024 11:22 PM INVERFORM MACHINE OPERATOR) Anatomical Region Laterality Modality Head and Neck N/A Computed Tomogra phy 06/20/2024 11:1 4 PM INVERFORM MACHINE OPERATOR Impressions 06/21/2024 8:19 AM INVERFORM MACHINE OPERATOR No acute intracranial abnormality. Electronically signed by: Rohith Funez MD Narrative 06/21/2024 8:19 AM INVERFORM MACHINE OPERATOR EXAMINATION: CT head without contrast HISTORY: Dizziness, multiple falls TECHNIQUE: CT of the head was performed with images acquired from skull base to vertex without intravenous contrast. COMPARISON: CT head 04/28/2023 FINDINGS: No acute intracranial hemorrhage, mass effect or midline shift. No large vessel territory early ischemic change. Unchanged linear hypodensity along the inferior margin of the right lentiform nucleus. Interval mild cerebellar atrophy. Mild frontal lobe predominant cortical atrophy is unchanged. 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 Normal ventricles. Visualized orbits, paranasal sinuses and mastoids are normal. No fracture. Procedure Note Rohith Funez MD PhD - 06/21/2024 EXAMINATION: CT head without contrast HISTORY: Dizziness, multiple falls TECHNIQUE: CT of the head was performed with images acquired from skull base to vertex without intravenous contrast. COMPARISON: CT head 04/28/2023 FINDINGS: No acute intracranial hemorrhage, mass effect or midline shift. No large vessel territory early ischemic change. Unchanged linear hypodensity along the inferior margin of the right lentiform nucleus. Interval mild cerebellar atrophy. Mild frontal lobe predominant cortical atrophy is unchanged. 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 Normal ventricles. Visualized orbits, paranasal sinuses and mastoids are normal. No fracture. IMPRESSION: No acute intracranial abnormality. Electronically signed by: Rohith Funez MD Anamika Barbosa MD IM CT PROCEDURES Fin al Result * (ABNORMAL) Troponin T high-sensitivity 2-hour (06/20/2024 10:42 PM INVERFORM MACHINE OPERATOR) Trop T hs 20(H) <=14 ng/L Comment: Interpretive Data For further hscTnT resources including the diagnostic algorithm and an aid in interpretation, copy and paste this link: https://nrl.testcatalog.org/show/hsTrop Current Interpretive Data last revised 2020. Trop T hs delta 2 ng/L [facility] Trop T hs interp Insignificant [facility] Blood 06/20/2024 10:4 2 PM INVERFORM MACHINE OPERATOR 06/20/2024 10:54 PM INVERFORM MACHINE OPERATOR Sandra Aceves MD LAB BLOOD ORDERABLES Final Result [facility] [address] Department [place] [address] * Respiratory pathogen panel Nasopharyngeal (06/20/2024 10:42 PM INVERFORM MACHINE OPERATOR) Influenza A RNA Not Detected Not Detected [place] Influenza B RNA Not Detected Not Detected [facility] RSV RNA Not Detected Not Detected [facility] COVID-19 RNA Not Detected Not Detected [facility] Coronavirus 229E RNA Not Detected Not Detected [facility] Coronavirus HKU1 RNA Not Detected Not Detected [facility] Coronavirus NL63 RNA Not Detected Not Detected [facility] Coronavirus OC43 RNA Not Detected Not Detected [facility] Adenovirus DNA Not Detected Not Detected [facility] Metapneumovirus RNA Not Detected Not Detected [facility] Rhinovirus/Enterov irus RNA Not Detected Not Detected [facility] Parainfluenza 1 RNA Not Detected Not Detected [facility] Parainfluenza 2 RNA Not Detected Not Detected [facility] Parainfluenza 3 RNA Not Detected Not Detected [facility] Parainfluenza 4 RNA Not Detected Not Detected [facility] B. pertussis DNA Not Detected Not Detected [facility] B. parapertussis DNA Not Detected Not Detected [facility] C. pneumoniae DNA Not Detected Not Detected [facility] M. pneumoniae DNA Not Detected Not Detected [facility] Comment: Interpretive Data The [employer] FilmArray Respiratory Panel (RP2.1) assay is a multiplexed real-time PCR based nucleic acid test capable of simultaneous qualitative detection and identification of multiple respiratory viral and bacterial nucleic acids, including SARS Coronavirus 2 (the causative agent of COVID-19). The following bacteria, viruses and virus subtypes can be identified using the FilmArray RP2.1 assay: Bordetella pertussis, Bordetella parapertussis, Chlamydia pneumoniae, Mycoplasma pneumoniae, Adenovirus, SARS Coronavirus 2, seasonal coronaviruses (Coronavirus HKU1, Coronavirus NL63, Coronavirus 229E, and Coronavirus OC43), Influenza A, Influenza A subtype H1, Influenza A subtype H3, Influenza A subtype 2009 H1, Influenza B, Metapneumovirus, Parainfluenza 1, Parainfluenza 2, Parainfluenza 3, Parainfluenza 4, RSV, Rhinovirus/Enterovirus. Due to the genetic similarity between human Rhinovirus and Enterovirus, the FilmArray RP2.1 assay cannot reliably differentiate them. Coronavirus OC43 may cross-react with some isolates of Coronavirus HKU1. A dual positive result may be due to cross-reactivity or may indicate a co- infection. The detection and identification of specific viral and bacterial nucleic acids from individuals exhibiting signs and symptoms of a respiratory infection aids in the diagnosis of respiratory infection if used in conjunction with other clinical and epidemiological information. The results of this test should not be used as the sole basis for diagnosis, treatment, or other management decisions. Negative results in the setting of a respiratory illness may be due to infection with pathogens that are not detected by this test. Positive results do not rule out infection/co-infection with other organisms. The agent(s) detected by the FilmArray RP2.1 may not be the definite cause of disease. Additional testing (lab, imaging, etc.) may be necessary when evaluating a patient with possible respiratory tract infection. The FilmArray RP2.1 assay has FDA clearance for testing of LACE ROLLER OPERATOR swabs. The performance characteristics of this assay have been determined by [facility]. Current interpretive data was last revised on 2020. Nasopharyngeal 06/20/2024 10 :42 PM INVERFORM MACHINE OPERATOR 06/20/2024 11:01 PM INVERFORM MACHINE OPERATOR Randi RODRIGUEZ [facility] - 06/20/2024 11:57 PM INVERFORM MACHINE OPERATOR Is the Patient experiencing symptoms consistent with COVID?->Yes Surveillance testing for transplant patient?->No Anamika Barbosa MD LAB MICROBIOLOGY - GE NERAL ORDERABLES Final Result Performing Organization Address [facility] Co de Phone Number [facility] [address] Department [place] [address] MBC * (ABNORMAL) Troponin T high-sensitivity series (baseline, 2hr, 4hr, 6hr) (06/20/2024 8:43 PM INVERFORM MACHINE OPERATOR) Trop T hs 18(H) <=14 ng/L Comment: Interpretive Data For further hscTnT resources including the diagnostic algorithm and an aid in interpretation, copy and paste this link: https://nrl.testcatalog.org/show/hsTrop Current Interpretive Data last revised 2020. Blood 06/20/2024 8:43 PM INVERFORM MACHINE OPERATOR 06/20/2024 8:58 PM INVERFORM MACHINE OPERATOR us Sandra Aceves MD LAB BLOOD ORDERABLES Final Result Performing Organization Address [facility] Co de Phone Number [facility] [address] Department [place] [address] * eGFR (06/20/2024 8:43 PM INVERFORM MACHINE OPERATOR) eGFR 76 >=60 mL/min/1. 73 m2 Comment: Interpretive Data Reference Interval Normal >/= 90 mL/min/1.73m2 Mildly decreased* 60 - 89 mL/min/1.73m2 Mildly to moderately decreased 45 - 59 mL/min/1.73m2 Moderately to severely decreased 30 - 44 mL/min/1.73m2 Severely decreased 15 - 29 mL/min/1.73m2 Kidney Failure < 15 mL/min/1.73m2 *Relative to young adult level Estimated glomerular filtration rate is determined by the 2020 CKD-EPI equation recommended by the National Kidney Foundation (A Unifying Approach to GFR Estimation: Recommendations of the NKF-ASK Task Force on Reassessing the Inclusion of Race in Diagnosing Kidney Disease, JASN 2020). The CKD-EPI equation should not be used for patients with unstable renal function and has not been validated in children and those over 70. Current interpretive data was last reviewed 2021. Blood 06/20/2024 8:43 PM INVERFORM MACHINE OPERATOR 06/20/2024 8:58 PM INVERFORM MACHINE OPERATOR us Sandra Aceves MD LAB BLOOD ORDERABLES Final Result [facility] [address] Department [place] [address] * (ABNORMAL) Differential, auto (06/20/2024 8:43 PM INVERFORM MACHINE OPERATOR) Neutrophil abs 12.8(H) 1.5 - 6.5 K/cumm Imm gran abs 0.2(H) 0.0 - 0.1 K/cumm [facility] Lymphocyte abs 3.9(H) 0.8 - 3.3 K/cumm [facility] Monocyte abs 2.8(H) 0.2 - 0.8 K/cumm [facility] Eosinophil abs 0.0 0.0 - 0.5 K/cumm [facility] Basophil abs 0.1 0.0 - 0.1 K/cumm [facility] Neutrophil pct 64.9 % [facility] Comment: Interpretive Data Percent cell count reference ranges are not reported, since discordance with absolute values may lead to misinterpretation of CBC data. Current Interpretive Data was last revised on 2017. Imm gran pct 0.9 % [facility] Comment: Interpretive Data Percent cell count reference ranges are not reported, since discordance with absolute values may lead to misinterpretation of CBC data. Current Interpretive Data was last revised on 2017. Lymphocyte pct 19.6 % [facility] Comment: Interpretive Data Percent cell count reference ranges are not reported, since discordance with absolute values may lead to misinterpretation of CBC data. Current Interpretive Data was last revised on 2017. Monocyte pct 13.9 % [facility] Comment: Interpretive Data Percent cell count reference ranges are not reported, since discordance with absolute values may lead to misinterpretation of CBC data. Current Interpretive Data was last revised on 2017. Eosinophil pct 0.2 % [facility] Comment: Interpretive Data Percent cell count reference ranges are not reported, since discordance with absolute values may lead to misinterpretation of CBC data. Current Interpretive Data was last revised on 2017. Basophil pct 0.5 % [facility] Comment: Interpretive Data Percent cell count reference ranges are not reported, since discordance with absolute values may lead to misinterpretation of CBC data. Current Interpretive Data was last revised on 2017. Blood 06/20/2024 8:43 PM INVERFORM MACHINE OPERATOR 06/20/2024 8:58 PM INVERFORM MACHINE OPERATOR us Sandra Aceves MD LAB BLOOD ORDERABLES Final Result [facility] [address] Department [place] [address] * Pro B-type natriuretic peptide (06/20/2024 8:43 PM INVERFORM MACHINE OPERATOR) NT-proBNP 141 <=300 pg/mL Comment: Interpretive Comments: A. Dyspnea in Acute Care Setting All Ages: < 300 pg/ml, acute heart failure unlikely. < 50 yrs: 300 - 450 pg/ml, further investigation warranted. > 450 pg/ml, acute heart failure likely. 50 - 74 yrs: 300 - 900 pg/ml, further investigation warranted. > 900 pg/ml, acute heart failure likely . > or = 75 yrs: 450 - 1800 pg/ml, further investigation warranted. > 1800 pg/ml, acute heart failure likely. B. Non-acute Setting < 75 yrs < 125 pg/ml, rules out heart failure. > or = 125 pg/ml, further investigation warranted. > or = 75 yrs < 450 pg/ml, rules out heart failure. > or = 450 pg/ml, further investigation warranted. - Knowledge of each individual patient's NT-proBNP range may be more useful than using similar cut-points for every patient. Please note that marked elevations in NT-proBNP levels may be observed in state other than Left Ventricular Congestive Failure, including: acute coronary syndromes, right heart strain/failure (including pulmonary embolism and cor pulmonale), critical illness, renal failure, as well as advanced age. - References: 1. Celai AVILA et.al. Eur Heart J. 2006:27:330-337. 2. Reagan RW, Jamil AM. J. AM Ananya Cardiol: Cardiovasc Imag. 2009;2: 216- 225. Interpretive Data Last Revised Date: 2017. Blood 06/20/2024 8:43 PM INVERFORM MACHINE OPERATOR 06/20/2024 8:58 PM INVERFORM MACHINE OPERATOR us Sandra Aceves MD LAB BLOOD ORDERABLES Final Result Performing Organization Address [facility]/ZIP Co de Phone Number [facility] [address] [employer] [place] [address] * (ABNORMAL) CBC with auto differential (06/20/2024 8:43 PM INVERFORM MACHINE OPERATOR) WBC 19.8(H) 3.8 - 9.9 K/cumm Hgb 11.6(L) 11.9 - 15.5 g/dL [facility] Hct 34.1(L) 35.6 - 45.5 % [facility] Plt 302 150 - 400 K/cumm [facility] MPV 10.6 9.1 - 12.3 fL [facility] RBC 3.70(L) 3.90 - 5.20 M/cumm [facility] MCV 92.2 81.3 - 96.4 fL [facility] MCH 31.4 27.1 - 33.3 pg [facility] MCHC 34.0 32.3 - 35.7 g/dL [facility] RDW CV 12.7 11.1 - 14.9 % [facility] RDW SD 42.9 35.7 - 48.1 fL [facility] NRBC abs 0.00 0.00 - 0.01 K/cumm [facility] Blood 06/20/2024 8:43 PM INVERFORM MACHINE OPERATOR 06/20/2024 8:58 PM INVERFORM MACHINE OPERATOR us Sandra Aceves MD LAB BLOOD ORDERABLES Final Result Performing Organization Address [facility]/ZIP Co de Phone Number [facility] [address] [employer] [place] [address] * (ABNORMAL) Comprehensive metabolic panel (06/20/2024 8:43 PM INVERFORM MACHINE OPERATOR) Sodium 136 135 - 145 mmol/L Potassium, pl 3.4 3.3 - 4.9 mmol/L [facility] Chloride 95(L) 97 - 110 mmol/L [facility] CO2 22 22 - 32 mmol/L [facility] Anion gap 19(H) 2 - 15 mmol/L [facility] BUN 19 6 - 25 mg/dL [facility] Creatinine 0.85 0.60 - 1.10 mg/dL [facility] Glucose 176 70 - 199 mg/dL [facility] Comment: Interpretive Data Fasting glucose >/= 126 mg/dl is diagnostic for diabetes. Fasting is defined as no caloric intake for at least 8 hours. Fasting glucose between 100 mg/dl to 125 mg/dl is diagnostic of prediabetes. In a patient with classic symptoms of hyperglycemia or hyperglycemic crisis, a random glucose >/= 200 mg/dl is diagnostic for diabetes. In the absence of unequivocal hyperglycemia, results should be confirmed by repeat testing. The classification and Diagnosis of Diabetes Diabetes Care 2021; 46: S19-S40. Current interpretive data was last revised 2022. Calcium 8.8 8.5 - 10.3 mg/dL [facility] Bilirubin, total 0.9 0.1 - 1.2 mg/dL [facility] Protein, pl 6.6 6.5 - 8.5 g/dL [facility] Albumin 3.7 3.5 - 5.0 g/dL [facility] Alk phos 37(L) 40 - 130 Units/L [facility] ALT 14 7 - 45 Units/L [facility] AST 19 10 - 45 Units/L [facility] Comment:Slightly Hemolyzed S pecimen Blood 06/20/2024 8:43 PM INVERFORM MACHINE OPERATOR 06/20/2024 8:58 PM INVERFORM MACHINE OPERATOR us Sandra Aceves MD LAB BLOOD ORDERABLES Final Result [facility] [address] Department [place] [address] * XR Chest PA Lateral 2 Views (06/20/2024 8:23 PM INVERFORM MACHINE OPERATOR) Anatomical Region Laterality Modality Body, Chest N/A Computed Radiogr aphy 06/21/2024 10:1 5 AM INVERFORM MACHINE OPERATOR Impressions 06/21/2024 4:32 PM INVERFORM MACHINE OPERATOR There are cholecystectomy clips. The lungs are clear. No pleural effusion or pneumothorax. Normal cardiomediastinal silhouette. Dictated by: Hari Fernandez MD The radiology attending physician has personally reviewed this study, and had reviewed and/or edited this written report and agrees with it. Electronically signed by: Brandon Sapp M.D. Narrative 06/21/2024 4:32 PM INVERFORM MACHINE OPERATOR EXAMINATION: XR CHEST PA LATERAL 2 VIEWS COMPARISON: Chest radiograph 04/30/2020 Procedure Note Brandon Sapp MD - 06/21/2024 EXAMINATION: XR CHEST PA LATERAL 2 VIEWS COMPARISON: Chest radiograph 04/30/2020 IMPRESSION: There are cholecystectomy clips. The lungs are clear. No pleural effusion or pneumothorax. Normal cardiomediastinal silhouette. Dictated by: Hari Fernandez MD The radiology attending physician has personally reviewed this study, and had reviewed and/or edited this written report and agrees with it. Electronically signed by: Brandon Sapp M.D. us Sandra Aceves MD IMG XR PROCEDURES Final Res ult * POCT glucose (06/20/2024 6:58 PM INVERFORM MACHINE OPERATOR) Glucose, POC 195 70 - 199 mg/dL Comment: For Glucose values <35 mg/dl when Hematocrit is >60 mg/dl,the test may not accurately detect significant hypoglycemia,and testing in the Laboratory should be considered if clinically indicated. Blood 06/20/2024 6:58 PM INVERFORM MACHINE OPERATOR 06/20/2024 6:58 PM INVERFORM MACHINE OPERATOR us Notinfile Unknown LAB POCT ORDERABLES - DEVICE F inal Result [facility] [address] Department [place] [address] * ECG 12 lead (06/20/2024 6:49 PM INVERFORM MACHINE OPERATOR) 06/20/2024 6:49 PM INVERFORM MACHINE OPERATOR Narrative [facility] - 06/21/2024 3:20 PM INVERFORM MACHINE OPERATOR Vent Rate: 96 bpm RR Interval: 623 msec SC Interval: 138 msec QRS Duration: 89 msec QT Interval: 322 msec QTC Interval: 375 msec P-R-T [place]: -9 - -14 - 53 degrees IMPRESSION: SINUS RHYTHM POSSIBLE INFERIOR MYOCARDIAL INFARCTION POOR R-WAVE PROGRESSION ABNORMAL ECG Electronically Signed By: Claus Davis MD [facility] Anamika Barbosa MD ECG ORDERABLES Final Result Performing Organization Address [facility]/ZIP Co de Phone Number [facility] * (ABNORMAL) Hemoglobin A1c (05/23/2024 8:38 AM INVERFORM MACHINE OPERATOR) Pathologist [facility] Hgb A1C 6.3(H) 4.0 - 5.6 % Estimated Average Glucose 134 mg/dL [facility] Comment: The ADA recommends reporting an estimated Average Glucose (eAG) with all Hemoglobin A1c results using the equation derived from a study of 507 normal and diabetic adults. Minority populations were underrepresented and children were not included. (Diabetes Care 31:4589-6921, 2008). The eAG is not equivalent to a fasting glucose. Blood 05/23/2024 8:38 AM INVERFORM MACHINE OPERATOR 05/23/2024 8:38 AM INVERFORM MACHINE OPERATOR Gillian Perea MD LAB BLOOD ORDERABLES Final Resu lt [facility] [address] Department [place] [address] * Albumin Creatinine Ratio, Urine (01/11/2024 7:04 PM CDT) Albumin Ur 18.5 mg/L Comment: Interpretive Data No reference range established. Current interpretive data was last revised 2018. Creatinine Ur 214.5 mg/dL [facility] Comment: Interpretive Data No reference range established. Current interpretive data was last revised 2018. Albumin Creatinine Ratio, Ur 9 1 - 29 mg/g [facility] Urine 01/11/2024 7:04 PM CDT 01/11/2024 7:04 PM CDT us Gillian Perea MD LAB URINE ORDERABLES Final Resu lt [facility] [address] Department [place] [address] * (ABNORMAL) Lipid panel (01/11/2024 2:27 PM CDT) Cholesterol 127 30 - 199 mg/dL Comment: Interpretive Data Ages < or = 19 years Acceptable: <170 mg/dL Borderline high: 170-199 mg/dL High: >or= 200 mg/dL Ages > or = 20 years Desirable: <200 mg/dL Borderline high: 200-239 mg/dL High: >or= 240 mg/dL Literature References: 1. Expert Panel on Integrated Guidelines for Cardiovascular Health and Risk Reduction in Children and Adolescents. Pediatrics 2011;128:S213 2. NCEP Expert Panel. Circulation 2004;110:227 Current Interpretive Data was last revised on 2017. Triglycerides 170(H) <=149 mg/dL [facility] Comment: Interpretive Data Ages < or = 9 years Acceptable: <75 mg/dL Borderline high: 75-99 mg/dL High: >or= 100 mg/dL Ages 10 to 20 years Acceptable: <90 mg/dL Borderline high: 90-129 mg/dL High: >or= 130 mg/dL Ages > or = 20 years Desirable: <150 mg/dL Borderline high: 150-199 mg/dL High: 200-499 mg/dL Very high: >or= 499 mg/dL Literature References: 1. Expert Panel on Integrated Guidelines for Cardiovascular Health and Risk Reduction in Children and Adolescents. Pediatrics 2011;128:S213 2. NCEP Expert Panel. Circulation 2004;110:227 Current Interpretive Data was last revised on 2017. HDL 64 >=40 mg/dL [facility] Comment: Interpretive Data Ages < or = 19 years Acceptable: >45 mg/dL Borderline low: 40-45 mg/dL Low: <40 mg/dL Ages > or = 20 years Desirable: >or= 60 mg/dL Low: <40 mg/dL Literature References: 1. Expert Panel on Integrated Guidelines for Cardiovascular Health and Risk Reduction in Children and Adolescents. Pediatrics 2011;128:S213 2. NCEP Expert Panel. Circulation 2004;110:227 Current Interpretive Data was last revised on 2017. LDL, calculated 36 <=129 mg/dL [facility] Comment: Interpretive Data Ages < or = 19 years Acceptable: <110 mg/dL Borderline high: 110-129 mg/dL High: >or= 130 mg/dL Ages > or = 20 years Optimal: <100 mg/dL Near optimal: 100-129 mg/dL Borderline high: 130-159 mg/dL High: >160 mg/dL Calculated using the Aaron LDL-C estimating equation. This equation was implemented on 2023. Prior to this date LDL-C was estimated using the Friedewald equation. Literature References: 1. Expert Panel on Integrated Guidelines for Cardiovascular Health and Risk Reduction in Children and Adolescents. Pediatrics 2011;128:S213 2. NCEP Expert Panel. Circulation 2004;110:227 3. Aaron Quinones et al. NILA Cardiol. 2019August 17;5(5):540-548. doi: 10.1001/[email or web address].2020.0013 Current Interpretive Data was last revised on 2023. Non-HDL Cholesterol 63 mg/dL [facility] Comment: Interpretive Data Ages < or = 19 years Acceptable: <120 mg/dL Borderline high: 120-144 mg/dL High: >145 mg/dL Ages > or = 20 years When triglycerides are >200 mg/dL, Non-HDL cholesterol is a secondary target of therapy with treatment goals that are 30 mg/dL greater than the LDL cholesterol target. Literature References: 1. Expert Panel on Integrated Guidelines for Cardiovascular Health and Risk Reduction in Children and Adolescents. Pediatrics 2011;128:S213 2. NCEP Expert Panel. Circulation 2004;110:227 Current Interpretive Data was last revised on 2017. Chol/HDL ratio 2 [facility] Blood 01/11/2024 2:27 PM CDT 01/11/2024 7:04 PM CDT Gillian Perea MD LAB BLOOD ORDERABLES Final Resu lt [facility] [address] Department [place] [address] * Diabetic Eye Exam (03/16/2023) Historical Provider HEALTH MAINTENANCE Final Result * Screening Mammogram Bilateral W Waldo (07/04/2021 12:44 PM CDT) Anatomical Region Laterality Modality Breast Bilateral Mammography Narrative 07/07/2021 12:16 PM CDT Mammogram Technique: Bilateral Digital Breast Tomosynthesis, Bilateral C-view 2D Screening mammogram. Views obtained: bilateral craniocaudal; bilateral mediolateral oblique; and right craniocaudal exaggerated to axilla. Computer Aided Detection was performed. Mammogram Findings: The present examination has been compared to prior imaging studies performed at [facility] on 01/26/2011 and 03/28/2012, and at [facility] on 07/12/2014. The breasts are almost entirely fatty. There is no suspicious abnormality in either breast. Impression: There is no mammographic evidence of malignancy. Annual screening mammography is recommended. OVERALL FINAL ASSESSMENT: BI-RADS CATEGORY 1: Negative. Procedure Note Luisa Shankar MD - 07/07/2021 Mammogram Technique: Bilateral Digital Breast Tomosynthesis, Bilateral C-view 2D Screening mammogram. Views obtained: bilateral craniocaudal; bilateralmediolateral oblique; and right craniocaudal exaggerated to axilla. Computer Aided Detection was performed. Mammogram Findings: The present examination has been compared to prior imaging studies performed at [facility] on 01/26/2011 and 03/28/2012, and at [facility] on 07/12/2014. The breasts are almost entirely fatty. There is no suspicious abnormality in either breast. Impression: There is no mammographic evidence of malignancy. Annual screening mammography is recommended. OVERALL FINAL ASSESSMENT: BI-RADS CATEGORY 1: Negative. us Self Screening Mammogram IMG MAMMO PROCEDURES Fi nal Result * Serum Hepatitis C ab (07/12/2014 6:08 AM CDT) HCV ab Negative NEG HISTORICAL RESULTS Serum 07/12/2014 6:08 AM CDT Narrative HISTORICAL RESULTS - 07/13/2014 6:14 AM CDT Interpretive Data If confirmation is required, call Laboratory Customer Service to request sample to be sent to [facility] for Hepatitis C Virus (HCV) RNA Detection and Quantitation by Real-Time Reverse Packing Room Worker-PCR (RT-PCR). Current interpretive data was last revised on 2011 us Ngozi Richards MD LAB BLOOD ORDERABLES Fin al Result HISTORICAL RESULTS * COLONOSCOPY REPORT (09/07/2013) Anatomical Region Laterality Modality Other Narrative 09/07/2013 Ordered by an unspecified provider. us Historical Provider GI PROCEDURE ORDERABLES F inal Result from Last 3 Months or Most Recently Relevant to Health Maintenance Insurance [employer] Member Subscriber Plan / Payer (Ef fective 2024-Present) Name:Rosemary Fontaine Relation to Subscriber:Self Name:Rosemary Fontaine Payer ID:[id number] (NAIC) Type:MEDICARE RISK OTHER Address: [address] [facility] [place] [id number] [facility] Advance Directives For more information, please contact: [phone] * Full Code (Latest Code Status on File) Date Activated Date Inactivated Comments 06/21/2024 3:32 AM 06/21/2024 11:03 PM * Full Code Date Activated Date Inactivated Comments 06/02/2018 2:30 PM 06/02/2018 7:25 PM Care Teams Contractor Buyer Relationship Specialty Start Date End Date Gillian Perea MD [address] [address] PCP - General Family Medicine 04/14/23 Maximus Doan MD PhD [address] [place] [address] Medical Oncologist/Department Chairperson Hematology and Oncology 08/28/22 Morena Quach NP [address] [place] [address] Nurse Practitioner Internal Medicine 08/28/22
--- OUTSIDE RECORDS SUMMARY | 2024-09-14 13:40 | XMS_ITS | Clinical Summary ---
Author Organization [facility] Address [address] [place] [address] Care Team Providers Care Zoning Technician Name Role Phone Unavailable Primary Care Provider Unavailabl e Medications colesevelam (WELCHOL) 625 mg Oral Tab Take 1,875 mg by mouth 2 times daily with meals. Active diphenoxylate-a tropine (LOMOTIL) 2.5-0.025 mg Oral tablet Take 1 Tab by mouth 4 times daily as needed. Active lisinopril (PRINIVIL) 40 mg Oral tablet Take 40 mg by mouth daily. Active ALBUTEROL INHALATION Take by inhalation. Active fluticasone-viridiana meterol (ADVAIR DISKUS) 250-50 mcg/dose Inhalation DsDv Take 1 Puff by inhalation 2 times daily. Active CALCIUM CARBONATE/VITAM IN D3 (CALCIUM + D ORAL) Take by mouth. Activ e citalopram (CELEXA) 20 mg tablet TAKE 1 TABLET BY MOUTH EVERY MORNING 30 Tablet 0 6 Active PROAIR RESPICLICK 90 mcg/actuation metered powder inhaler 8 Active SYMBICORT 80-4.5 mcg/actuation HFA Aerosol Inhaler 8 Active cyclobenzaprine (FLEXERIL) 10 mg tablet TK 1 T PO QHS 0 8 Active DULoxetine (CYMBALTA) 60 mg Capsule, Delayed Release(E.C.) 8 Active DULoxetine (CYMBALTA) 30 mg Capsule, Delayed Release(E.C.) 11 8 Active ergocalciferol (VITAMIN D2) 50,000 unit capsule TK 1 C PO 1 TIME A WK FOR 8 WKS 0 8 Active HYDROcodone-elsa taminophen (NORCO) 7.5-325 mg Tablet TK 1 T PO QID 0 8 Active meloxicam (MOBIC) 15 mg tablet 11 8 Active LYRICA 75 mg Capsule TK ONE C PO BID 1 8 Active torsemide (DEMADEX) 5 mg tablet TK 1 T PO QD 2 8 Active triamterene-hyd roCHLOROthiazid e (MAXZIDE 25) 37.5-25 mg tablet TK 1 T PO QD 2 8 Active nystatin (NYSTOP) 100,000 unit/gram powderIndicatio ns:Chronic vulvitis Apply to affected area 2 times daily. 60 Gram 4 8 Active amoxicillin (AMOXIL) 875 mg tablet TK 1 T PO BID 0 9 Active Clotrimazole (MYCELEX) 10 mg Maryse 0 9 Active predniSONE (DELTASONE) 20 mg tablet TK 2 TS PO D 0 8 Active Active Problems Problem Noted Date Diagnosed Date Morbid obesity with body mass index of 40.0-49.9 03/02/2018 IBS (irritable bowel syndrome) 02/26/2011 Status post endometrial ablation 01/09/2011 Family History Medical History Relation Name Comments Parkinson's Disease Maternal Grandfather Cancer Maternal Grandmother Kidney cancer Arthritis-osteo Mother Arthritis-rheumatoid Mother Heart Disease Mother Hypertension Mother Breast Cancer Other MGGM Colon Cancer Neg Hx Ovarian Cancer Neg Hx Relation Name Status Comments Father Alive Maternal Grandfather Maternal Grandmother Mother Alive Other MGGM Paternal Grandfather Paternal Grandmother Son Vinayak Alive Social History Tobacco Use Types Packs/Day Years Used Date Smoking Tobacco: Never Smokeless Tobacco: Never Tobacco Cessation:Counseling Given: No Alcohol Use Standard Drinks/Week Comments Yes 0 (1 standard drink = 0.6 oz pur e alcohol) socially, holidays Comments No Sex and Gender Information Value Date Recorded Sex Assigned at Not on file Legal Sex Female 5:35 AM WIRELESS TECHNICIAN Gender Identity Not on file Sexual Orientation Not on file Occupation Industry Job Start Date Job End Date Not on file Not on file Not on file Not on file Last Filed Vital Signs Vital Sign Reading Time Taken Comments Blood Pressure 138/90 03/02/2018 9:40 AM WIRELESS TECHNICIAN Pulse - - Temperature - - Respiratory Rate - - Oxygen Saturation - - Inhaled Oxygen Concentration - - Weight 138.8 kg (306 lb) 03/02/2018 9:40 AM WIRELESS TECHNICIAN Height 162.6 cm (5' 4) 03/02/2018 9:40 AM WIRELESS TECHNICIAN Body Mass Index 52.52 03/02/2018 9:40 AM WIRELESS TECHNICIAN Plan of Treatment Health Maintenance Due Date Last Done Comments DTAP/TDAP/TD VACCINES (1 - Tdap) 1976 FIT-DNA Q 3 years 2002 FIT/FOBT Q 1 year 2002 Flex Sig/CT Colonography Q 5 years 2002 PNEUMOCOCCAL VACCINE 50+ YEA RS (1 of 1 - PCV) 07/18/2007 ZOSTER VACCINE (1 of 2) 07/18/2007 Pre-Diabetes and Diabetes Screening 02/19/2011 02/20/2008 COLORECTAL SCREENING 02/28/2017 02/28/2014, 02/27/20 09 Colorectal Cancer Screening 02/28/2017 UPPER GI ENDOSCOPY 02/28/2017 02/28/2014 (P reviously completed) RSV VACCINE (60+ or ) (1 - Risk 60-74 years 1-dose series) 2017 BREAST CANCER SCREENING 07/04/2022 07/05/19, 07/04/2021, 07/13/2014, Additional history exists OSTEOPOROSIS SCREENING 2022 INFLUENZA VACCINE (#1) 2023 Procedures Procedure Name Priority Date/Time Associated Diagnosis Comments MAMMO SCREENING BILAT Routine 07/04/2021 HEMOGLOBIN A1C Routine 02/20/2008 4:30 PM WIRELESS TECHNICIAN from Last 3 Months or Most Recently Relevant to Health Maintenance Results * MAMMO SCREENING BILAT (07/04/2021) Anatomical Region Laterality Modality Breast Bilateral Mammography us Abel Fuentes MD MAMMO ORDERABLES Edited Resu lt - Final * HEMOGLOBIN A1C (02/20/2008 4:30 PM WIRELESS TECHNICIAN) HEMOGLOBIN A1C 5.8 4.1 - 6.1 % of Hgb [facility] GLUCOSE, MEAN BLOOD 129 mg/dL [facility] Blood specimen (specimen) 02/20/2008 4:30 PM WIRELESS TECHNICIAN 02/20/2008 4:42 PM WIRELESS TECHNICIAN us Abel Fuentes MD CHEMISTRY ORDERABLES Final R esult INTERFACE SYSTEM Refer to clinic/hospital department [facility] CLIA# [id number] [address] [place] [address] from Last 3 Months or Most Recently Relevant to Health Maintenance Insurance
--- OUTSIDE RECORDS SUMMARY | 2024-09-14 13:40 | XMS_ITS | Encounter Summary ---
Author Organization [employer] Address [address] [place] [address] Care Team Providers Care Channel Partners Name Role Phone Unavailable Primary Care Provider Unavailabl e Reason for Visit * Reason Onset Date Comments Appointment Verification 03/23/2018 Encounter Details Date Type Department Care Team (Late st Contact Info) Description 03/23/2018 Telephone [email or web address] [address] [facility] [address] [place] [address] Olesya Morocho, DENISE Appointment Verification Social History Tobacco Use Types Packs/Day Years Used Date Smoking Tobacco: Never Smokeless Tobacco: Never Alcohol Use Standard Drinks/Week Comments Yes 0 (1 standard drink = 0.6 oz pur e alcohol) socially, holidays Comments No Sex and Gender Information Value Date Recorded Sex Assigned at Not on file Legal Sex Female 5:35 AM EPIC 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
--- OUTSIDE RECORDS SUMMARY | 2024-09-14 13:40 | XMS_ITS | Encounter Summary ---
Author Organization [facility] Address [address] [place] [address] Care Team Providers Care Hand Blocker Name Role Phone Unavailable Primary Care Provider Unavailabl e Encounter Details Date Type Department Care Team (Latest Contact Info) Description 02/20/2008 Outpatient Historical [facility] Fuentes, Abel Quinones MD [address] [facility] [address] [place] [address] Routine Gynecological Examination Social History Tobacco Use Types Packs/Day Years Used Date Smoking Tobacco: Never Assessed Comments Unknown Sex and Gender Information Value Date Recorded Sex Assigned at Not on file Legal Sex Female 5:35 AM [employer] Gender Identity Not on file Sexual Orientation Not on file documented as of this encounter Plan of Treatment Not on file documented as of this encounter Procedures Procedure Name Priority Date/Time Associated Diagnosis Comments TSH REFLEXIVE Routine 02/20/2008 4:30 PM [employer] CBC WITH DIFFERENTIAL Routine 02/20/2008 4:30 PM [employer] ESTRADIOL Routine 02/20/2008 4:30 PM [employer] CANCER ANTIGEN 125 Routine 02/20/2008 4: 30 PM [employer] KEYSHA SCREEN W/REFLEX Routine 02/20/2008 4 :30 PM [employer] TESTOSTERONE, TOTAL Routine 02/20/2008 4 :30 PM [employer] HEMOGLOBIN A1C Routine 02/20/2008 4:30 PM [employer] LUTEINIZING HORMONE Routine 02/20/2008 4 :30 PM [employer] FSH Routine 02/20/2008 4:30 PM [employer] CEA Routine 02/20/2008 4:30 PM [employer] LIPID PANEL Routine 02/20/2008 4:30 PM [employer] COMPREHENSIVE METABOLIC PANEL Routine 02/20/2008 4:30 PM [employer] documented in this encounter Results * TSH REFLEXIVE (02/20/2008 4:30 PM [employer]) TSH 0.76 0.27 - 4.20 uU/mL [facility] Blood specimen (specimen) 02/20/2008 4:30 PM [employer] 02/20/2008 4:42 PM [employer] Abel Fuentes MD CHEMISTRY ORDERABLES Final R esult Performing Organization Address [facility] Phone Number INTERFACE SYSTEM Refer to clinic/hospital department [facility] CLIA# [id number] [address] [place] [address] * TESTOSTERONE (02/20/2008 4:30 PM [employer]) TESTOSTERONE 15 6 - 75 ng/dL [facility] Comment:No reference range e stablished for patients less than 18 years of age. Blood specimen (specimen) 02/20/2008 4:30 PM [employer] 02/20/2008 4:42 PM [employer] Abel Fuentes MD CHEMISTRY ORDERABLES Final R esult Performing Organization Address [facility] de Phone Number INTERFACE SYSTEM Refer to clinic/hospital department [facility] CLIA# [id number] [address] [place] [address] * LUTEINIZING HORMONE (02/20/2008 4:30 PM [employer]) LUTEINIZING HORMONE 16.4 mIU/mL [facility] Comment: Luteinizing Hormone Reference Range: Female: Normal Menstruating Female Follicular Phase 2.4 - 12.6 mIU/mL Ovulation Phase 14.0 - 95.6 mIU/mL Luteal Phase 1.0 - 11.4 mIU/mL Post Menopausal 7.7 - 58.5 mIU/mL Children less than 1 year old: Call laboratory for reference range. Blood specimen (specimen) 02/20/2008 4:30 PM [employer] 02/20/2008 4:42 PM [employer] Abel Fuentes MD CHEMISTRY ORDERABLES Edited Performing Organization Address [facility] de Phone Number INTERFACE SYSTEM Refer to clinic/hospital department [facility] CLIA# [id number] [address] [place] [address] * HEMOGLOBIN A1C (02/20/2008 4:30 PM [employer]) HEMOGLOBIN A1C 5.8 4.1 - 6.1 % of Hgb [facility] GLUCOSE, MEAN BLOOD 129 mg/dL [facility] Blood specimen (specimen) 02/20/2008 4:30 PM [employer] 02/20/2008 4:42 PM [employer] Abel Fuentes MD CHEMISTRY ORDERABLES Final R esult Performing Organization Address [facility] de Phone Number INTERFACE SYSTEM Refer to clinic/hospital department [facility] CLIA# [id number] [address] [place] [address] * FSH (02/20/2008 4:30 PM [employer]) FSH 23.5 mIU/mL [facility] Comment: FSH Reference Range: Female: Normally Menstruating Female Follicular Phase 3.5 - 12.5 mIU/mL Ovulation Phase 4.7 - 21.5 mIU/mL Luteal Phase 1.7 - 7.7 mIU/mL Post Menopausal 25.8 - 134.8 mIU/mL Children less than 1 year old: Call laboratory for reference range. Blood specimen (specimen) 02/20/2008 4:30 PM [employer] 02/20/2008 4:42 PM [employer] us Abel Fuentes MD CHEMISTRY ORDERABLES Final R esult INTERFACE SYSTEM Refer to clinic/hospital department [facility] CLIA# [id number] [address] [place], [place] [address] * (ABNORMAL) COMPREHENSIVE METABOLIC PANEL (02/20/2008 4:30 PM [employer]) CO2 28 22 - 30 mmol/L [facility] BILIRUBIN TOTAL 0.2 0.2 - 1.0 mg/dL [facility] POTASSIUM 4.8 3.5 - 4.9 mmol/L [facility] TOTAL PROTEIN 7.6 6.3 - 8.6 g/dL [facility] GLUCOSE 117(H) 65 - 99 mg/dL [facility] AST 20 12 - 32 U/L [facility] BUN 19 6 - 20 mg/dL [facility] CALCIUM 10.3(H) 8.6 - 10.2 mg/dL [facility] ALBUMIN 4.7 3.4 - 4.8 g/dL [facility] CHLORIDE 102 96 - 108 mmol/L [facility] CREATININE 0.68 0.51 - 0.95 mg/dL [facility] ALT 22 0 - 31 U/L [facility] SODIUM 141 135 - 145 mmol/L [facility] ALKALINE PHOSPHATASE 38 35 - 104 U/L [facility] GFR, >60 >=60 mL/min/1. 7 sq meter [facility] GFR >60 >=60 mL/min/1. 7 sq meter [facility] Comment: Modification of Diet in Renal Disease (MDRD) study formula. Estimated GFR rate interpretative information for both Americans and non- Americans is available on the [facility]anet at: [email or web address] Select: Lab Policies and Procedures Select: Reference Ranges - GFR Blood specimen (specimen) 02/20/2008 4:30 PM [employer] 02/20/2008 4:42 PM [employer] Abel Fuentes MD CHEMISTRY ORDERABLES Edited Performing Organization Address [facility] Phone Number INTERFACE SYSTEM Refer to clinic/hospital department [facility] CLIA# [id number] [address] [place] [address] * CEA (02/20/2008 4:30 PM [employer]) CEA 2.0 <=3.8 ng/mL [facility] Comment: Reference Range: Non-smoker: </= 3.8 ng/mL Smoker: < 5.5 ng/mL Values from different assay methods cannot be used interchangeably because the concentration of CEA in any given specimen can vary due to differences in assay methods and reagent specificity. Serum CEA levels, regardless of value, should not be interpreted as absolute evidence of the presence or absence of malignant disease. Performed on [employer] Modular E170 System. Blood specimen (specimen) 02/20/2008 4:30 PM [employer] 02/20/2008 4:42 PM [employer] Abel Fuentes MD CHEMISTRY ORDERABLES Edited Performing Organization Address [facility] Phone Number INTERFACE SYSTEM Refer to clinic/hospital department [facility] CLIA# [id number] [address] [place] [address] * (ABNORMAL) CBC WITH DIFFERENTIAL (02/20/2008 4:30 PM [employer]) HEMATOCRIT 43.5 35.5 - 44.0 % [facility] RDW-STDEV 45.5 37.1 - 48.7 fL [facility] RBC 4.67 3.90 - 4.90 M/uL [facility] MCHC 32.9 31.5 - 35.5 % [facility] MCV 93.1 82.0 - 99.0 fL [facility] PLATELETS 325 140 - 350 K/uL [facility] HEMOGLOBIN 14.3 11.8 - 14.8 g/dL [facility] RDW 13.4 11.5 - 14.5 % [facility] WBC 15.4(H) 4.0 - 9.8 K/uL [facility] MCH 30.6 27.2 - 32.6 pg [facility] MPV 10.3 9.3 - 12.4 fL [facility] BASOPHILS 1 0 - 2 % [facility] BASOPHILS ABSOLUTE 0.07 0.00 - 0.20 K/uL [facility] MONOCYTES 9 3 - 13 % [facility] MONOCYTE ABSOLUTE 1.38(H) 0.10 - 1.30 K/uL [facility] NEUTROPHILS 58 45 - 70 % [facility] NEUTROPHIL ABSOLUTE 8.97(H) 1.90 - 7.00 K/uL [facility] EOSINOPHILS 2 0 - 7 % [facility] EOSINOPHIL ABSOLUTE 0.28 0.00 - 0.70 K/uL [facility] LYMPHOCYTES 31 16 - 45 % [facility] LYMPHOCYTE ABSOLUTE 4.69(H) 0.70 - 4.50 K/uL [facility] Blood specimen (specimen) 02/20/2008 4:30 PM [employer] 02/20/2008 4:42 PM [employer] Result [facility] Abel Fuentes MD HEMATOLOGY ORDERABLES Edited Performing Organization Address [facility] Phone Number INTERFACE SYSTEM Refer to clinic/hospital department [facility] CLIA# [id number] [address] [place] [address] * CANCER ANTIGEN 125 (02/20/2008 4:30 PM [employer]) CA 125 9 <=34 U/mL [facility] Comment: Reference Range: CA-125 </= 34 U/mL (Females) Because the concentration of CA-125 in any given specimen can vary due to differences in assay methods and reagent specificity, values from different assay methods cannot be used interchangeably. Serum CA-125 levels, regardless of value, should not be interpreted as absolute evidence of the presence or absence of disease. CA-125 is not intended for use as a cancer screening test. Performed on [employer] Ele[employer] System. Blood specimen (specimen) 02/20/2008 4:30 PM [employer] 02/20/2008 4:42 PM [employer] us Abel Fuentes MD CHEMISTRY ORDERABLES Final R esult Performing Organization Address [facility] Phone Number INTERFACE SYSTEM Refer to clinic/hospital department [facility] CLIA# [id number] [address] [place] [address] * KEYSHA (02/20/2008 4:30 PM [employer]) KEYSHA SCREEN NEGATIVE NEGATIVE [facility] Comment: Lab test performed by: [facility] [address] [id number] [id number] EL NATH MD Blood specimen (specimen) 02/20/2008 4:30 PM [employer] 02/20/2008 4:42 PM [employer] Result [facility] us Abel Fuentes MD CHEMISTRY ORDERABLES Final R esult Performing Organization Address [facility] de Phone Number INTERFACE SYSTEM Refer to clinic/hospital department [facility] CLIA# [id number] [address] [place] [address] * (ABNORMAL) LIPID PANEL (02/20/2008 4:30 PM [employer]) CHOLESTEROL 244(H) 100 - 199 mg/dL [facility] CHOL/HDL RATIO 4.8 2.0 - 5.0 [facility] TRIGLYCERIDE 336(H) 10 - 149 mg/dL [facility] HDL 51 40 - 59 mg/dL [facility] LDL CALCULATED 126(H) <=99 mg/dL [facility] LIPID PANEL COMMENT See Below [facility] Comment: The adult ATP and pediatric NCEP classifications for lipids are available on the [facility] Intran[facility] at: [email or web address] Select: Lab Policies and Procedures,Current Select: Lipid Panel Interpretation Blood specimen (specimen) 02/20/2008 4:30 PM [employer] 02/20/2008 4:42 PM [employer] Abel Fuentes MD CHEMISTRY ORDERABLES Edited Performing Organization Address [facility] de Phone Number INTERFACE SYSTEM Refer to clinic/hospital department [facility] CLIA# [id number] [address] [place] [address] * ESTRADIOL (02/20/2008 4:30 PM [employer]) ESTRADIOL <12 pg/mL [facility] Comment: Estradiol Reference Range: Female: Normally Menstruating Female Follicular Phase: 13 - 166 pg/ml Ovulation Phase: 86 - 498 pg/mL Luteal Phase: 44 - 211 pg/mL Post Menopausal: <5 - 55 pg/mL 1st Trimester: 215 - >4300 pg/mL Children less than 1 year old: No Reference Range established. Blood specimen (specimen) 02/20/2008 4:30 PM [employer] 02/20/2008 4:42 PM [employer] us Abel Fuentes MD CHEMISTRY ORDERABLES Final R esult INTERFACE SYSTEM Refer to clinic/hospital department [facility] CLIA# [id number] [address] [place] [address] documented in this encounter Visit Diagnoses Diagnosis Routine gynecological examination documented in this encounter
--- OUTSIDE RECORDS SUMMARY | 2024-09-14 13:40 | XMS_ITS | Clinical Summary ---
Author Organization [facility] Address [address] [place] [address] Care Team Providers Care Department Chair Name Role Phone Maximus Doan MD PhD Unavailable [phone] Morena Quach PLOW SHAKER Unavailable [phone] Gillian Perea MD Primary Care Provider Allergies Active Allergy Reactions Criticality Noted Date [...] use. Do not swallow. 1 each 3 025 Active albuterol HFA (ProAir HFA) 90 mcg/actuation [...] AM CDT): Saw Dr. Pacheco for this. Hyden to be secondary to gabapentin. Morbid (severe) [...] not noticed much difference with Ozempic. Discussed Mounlandyro. Follow up pending A1C results and ability to get Mounlandyro. On ACEI and statin. Other chronic pain [...] (05/17/2018): Added automatically from request for surgery [id number] Foreign body in right ear 03/18/2018 No diagnosis on Linch I 01/24/201808/19 Bilateral sciatica 01/17/2018 Elevated hemoglobin A1c 09/25/2014 05/06/2022 Overview (07/24/2016): High hemoglobin A1c level Chronic sinusitis 09/02/2013 08/19/2022 Overview (07/23/2016): Chronic sinusitis Adiposity 09/02/2013 08/19/2022 Overview (07/24/2016): Obesity Arthritis 08/19/2022 Leg pain 08/19/2022 Knee pain 08/19/2022 Pain in both feet 08/19/2022 Encounters Date Type Department Care Team Description 09/13/2024 ACO Quality [facility] Accountable Care Organization [address] [place] [address] Farida Pabon MA 09/08/2024 Telephone [facility] Medical Group Primary Care at [place] [address] [facility] [address] [place] [phone] Gillian Perea MD Medical Records Request 09/01/2024 Telephone [facility] Medical Group Primary Care at [facility] [address] [facility] [address], [place] [address] Gillian Perea MD 08/21/2024 3:20 PM CDT Office Visit [facility] Orthopaedic Surgery [address] [facility] [facility] [address] 6th [place] [address] [place] [phone] Jevon Fonseca MD Chronic pain of both knees (Primary Dx) 08/21/2024 Telephone [facility] Orthopaedic Surgery [address] [facility] [facility] [address] 6th [place] [address] [place] [phone] Jevon Fonseca MD 08/18/2024 Telephone [facility] Care [address] [address] Talia Joyce Unsuccessful Phone Call 1 (Essence dm eye exam) 08/17/2024 Telephone [facility] Medical Group Orthopedics and Sports Medicine at [address] [phone] Jimi Max MD 08/12/2024 ACO Quality [address] [address] Talia Joyce 08/11/2024 Telephone [facility] Medical Group Primary Care at [address] [place] [phone] Gillian Perea MD Referral Request 07/27/2024 Telephone [facility] Medical Group Primary Care at [address] [place] [phone] Gillian Perea MD Symptom Based Call 07/18/2024 ACO Clinical Pharmacist [address] [address] Juliana Silva mik 2024 Telephone [facility] Medical Group Primary Care at [address] [place] [phone] Gillian Perea MD Symptom Based Call 07/12/2024 Orders Only [facility] Medical Group Primary Care at [address] [place] [phone] Gillian Perea MD Moderate asthma, unspecified whether complicated, unspecified whether persistent (Primary Dx); Shortness of breath 07/12/2024 Telephone [facility] Medical [facility] Primary Care at [facility] [address] [facility] [address], [place] [address] Gillian Perea MD Medical Question/Miscellane ous 07/10/2024 3:56 PM CDT - 07/10/2024 11:59 PM CDT Hospital Encounter [facility] - Imaging [address] [place] [address] Moderate asthma, unspecified whether complicated, unspecified whether persistent Discharge Disposition: Discharge to home or self care 07/10/2024 2:30 PM CDT Office Visit [facility] Medical [facility] Primary Care at [facility] [address] [facility] [address], [place] [address] Gillian Perea MD Moderate asthma, unspecified whether complicated, unspecified whether persistent (Primary Dx); Obesity (BMI 35.0-39.9 without comorbidity) 07/10/2024 Telephone [facility] Medical [facility] Primary Care at [facility] [address] [facility] [address], [place] [address] Gillian Perea MD Med Refill 07/07/2024 Nurse Triage [facility] Medical [facility] Primary Care at [facility] [address] [facility] [address], [place] [phone] Gillian Perea MD Moderate persistent asthma without complication 07/03/2024 Telephone [facility] Medical [facility] Primary Care at [facility] [address] [facility] [address], [place] [phone] Gillian Perea MD Medical Question/Miscellane ous 06/22/2024 COOKIE IP Outreach [facility] Accountable Care Organization [address] [place] [address] Noreen Wharton MA 06/22/2024 Telephone [facility] [address] [place] [address] Olesya Dickerson, DENISE 06/22/2024 Telephone [facility] [address] [place] [address] Olesya Dickerson, DENISE 06/20/2024 9:17 PM KEYBOARDING TEACHER - 06/21/2024 6:35 PM KEYBOARDING TEACHER Hospital Encounter [facility] [address] [place] [address] Anamika Barbosa MD Shimotani, Dorian Genki, Dustin Conway MD Fall, initial encounter (Primary Dx); Dizziness; Generalized weakness Discharge Disposition: Left Against Medical Advice 06/20/2024 5:47 PM KEYBOARDING TEACHER - 06/20/2024 11:59 PM KEYBOARDING TEACHER Hospital Encounter [facility] Emergency, Room R Discharge Disposition: Discharge to home or self care 06/19/2024 Telephone [facility] Medical Group Primary Care at [facility] [address] [facility] [address] [place] [address] Gillian Perea MD Referral Request from Last 3 Months Immunizations Immunization Administration Dates Next Due Influenza, [...] 02/27/2021 Tdap 01/21/2011 ZOSTER Recombinant 06/28/2021,06/17/2021, 022 Surgical History Surgery Date Site/Laterality Comments SINUS SURGERY 04/19/1994 - 04/18/1995 x2 ENDOMETRIAL ABLATION 04/19/2007 - 04/18/2008 uterine ablation OTHER SURGICAL HISTORY 04/19/2008 - 04/18/2009 D & C CHOLECYSTECTOMY 04/19/1991 - 04/18/1992 Cholecystectomy OTHER SURGICAL HISTORY basal cell CA OTHER SURGICAL HISTORY ruptured lumbar disc EPIDURAL INJECTION LUMBOSACRAL 11/21/2015 N/A EPIDURAL INJECTION LUMBOSACRAL 08/02/2015 N/A EPIDURAL INJECTION LUMBOSACRAL 08/21/2013 N/A EPIDURAL INJECTION LUMBOSACRAL 03/24/2013 N/A EPIDURAL INJECTION LUMBOSACRAL 06/01/2012 N/A IR INJECTION ARTHROGRAM SI JOINT BILATERAL WITH GUIDANCE 11/03/2017 Bilateral FL UPPER GI AIR CONTRAST W KUB 02/02/2018 Bilateral FL UPPER GI AIR CONTRAST W KUB 05/18/2018 Bilateral FL UPPER GI AIR CONTRAST W KUB 08/17/2018 Bilateral FLUORO GUIDED ASPIRATION OR INJECTION LARGE JOINT BILATERAL 09/05/2018 Bilateral FLUORO GUIDED ASPIRATION OR INJECTION LARGE JOINT BILATERAL 10/28/2018 Bilateral FL UPPER GI AIR CONTRAST W KUB 01/16/2019 Bilateral FLUORO GUIDED ASPIRATION OR INJECTION LARGE JOINT BILATERAL 02/03/2019 Bilateral FL UPPER GI AIR CONTRAST W KUB 05/16/2019 Bilateral FLUORO GUIDED ASPIRATION OR INJECTION LARGE JOINT BILATERAL 09/05/2019 Bilateral FL UPPER GI AIR CONTRAST W KUB 11/16/2019 Bilateral FLUORO GUIDED INJECTION KNEE RIGHT 02/19/2020 Right FLUORO GUIDED INJECTION KNEE LEFT 02/19/2020 Left FL UPPER GI AIR CONTRAST W KUB 03/26/2020 Bilateral FLUORO GUIDED ASPIRATION OR INJECTION LARGE JOINT BILATERAL 08/05/2020 Bilateral FLUORO GUIDED ASPIRATION OR INJECTION LARGE JOINT BILATERAL 03/04/2021 Bilateral FLUORO GUIDED ASPIRATION OR INJECTION LARGE JOINT BILATERAL 06/24/2021 Bilateral FLUORO GUIDED ASPIRATION OR INJECTION LARGE JOINT BILATERAL 12/30/2021 Bilateral FLUORO GUIDED ASPIRATION OR INJECTION LARGE JOINT BILATERAL 07/07/2022 Bilateral FLUORO GUIDED ASPIRATION OR INJECTION LARGE JOINT BILATERAL 12/29/2022 Bilateral FLUORO GUIDED ASPIRATION OR INJECTION LARGE JOINT BILATERAL 05/18/2023 Bilateral FLUORO GUIDED ASPIRATION OR INJECTION LARGE JOINT BILATERAL 02/15/2024 Bilateral FLUORO GUIDED ASPIRATION OR INJECTION LARGE JOINT BILATERAL 05/22/2024 Bilateral Medical History Medical History Date Comments Irritable bowel syndrome Irritab le bowel disease Osteoarthritis Osteoarthritis Hypertension Hypertension Asthma Asthma Arthritis Elevated hemoglobin A1c 09/25/2014 High hem oglobin A1c level Adiposity 09/02/2013 Obesity Foreign body in right ear 03/18/2018 Leukocytosis 09/02/2013 Leukocytosis Chronic sinusitis 09/02/2013 Chronic sinusi tis Dyspepsia 05/17/2018 Added kathy brown from request for surgery [id number] No diagnosis on Linch I 01/24/2018 Fatigue 07/12/2020 Leg pain Pain in both feet Knee pain Bilateral sciatica 01/17/2018 Memory loss 07/12/2020 Family History Medical History Relation Name Comments Coronary artery disease Maternal Grandmother Coronary artery disease; Kidney cancer Maternal Grandmother Cancer -kidney; Rheum arthritis Maternal Grandmother RA; Stroke Maternal Grandmother Stroke; Hyperlipidemia Mother Hyperlipidemi a; Hypertension Mother Hypertension; Osteoarthritis Mother Osteoarthriti s; Other Mother NPH; Stroke Mother Stroke; Relation Name Status Comments Maternal Grandmother Mother Social History Tobacco Use Types Packs/Day Years Used Date Smoking Tobacco: Never Smokeless Tobacco: Never Tobacco Cessation:Counseling Given: Not Answered Alcohol Use Standard Drinks/Week Comments Yes 0 (1 standard drink = 0.6 oz pur e alcohol) [facility] Utilities Answer Date Recorded In the past 12 months has [employer], gas, oil, or water [email or web address] threatened to shut off services in your [...] often do you attend chur ch or restorationism services? More than 4 times per year 06/21/2024 Do you belong to any clubs o r organizations such as uatsdin groups, unions, fraternal or athletic groups, or [...] any time in the past 12 [facility], were you homeless or living in a penitentiary (including now)? No 06/21/2024 Personal Safety Answer Date Recorded Have you ever been in or are you currently in a harmful physical or emotional relationship or is someone making you feel afraid or unsafe? 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 Not on file Not on file Obstetrics History Last Filed Vital Signs Vital Sign Reading [...] 07/10/2024 2:58 PM CDT Plan of Treatment Health Maintenance Due Date Last Done Comments Osteoporosis Screening-Bone Density Scan 1955 Hepatitis B Screening 07/18/1975 Breast Cancer Screening-Mammogram 07/04/2022 07/04/2021, 07/13/2014, 07/12/2014, Additional history exists Colon Cancer Screening-Colonoscopy 09/08/2023 09/07/2013 Hemoglobin A1C 11/20/2024 05/23/2024, 04/20, 01/11/2024, Additional history exists Albumin Creatinine Ratio, Urine 01/10/2025 01/11/2024, 08/22/2022, 04/30/2020 Depression Screening 01/10/2025 01/11/2024, 02/15/2023, 02/15/2023, Additional history exists Lipid Panel 01/10/2025 01/11/2024, 04/19, 08/22/2022, Additional history exists Well Visit 65+ 01/10/2025 01/11/2024, 06/2022, 07/15/2021 Dilated Eye Exam 03/16/2025 03/16/2023 Covid-19 Vaccine ( season) 2025 10/19/2021, 01/18/2021, 04/26/2020, Additional history exists Postponed from 12/19/2023 (Patient declined, but will receive in the future) DTaP/Tdap/Td Vaccine (2 - Td or Tdap) 05/21/2025 01/21/2011 Postponed from 01/21/2021 (Patient declined, but will receive in the future) Foot Exam 05/30/2025 08/19/2022, 02/27/2021 Postp oned from 08/20/2023 (Patient declined, but will receive in the future) Fall Risk Assessment 06/21/2025 06/21/2024, 05/17/2024, 08/19/2022, Additional history exists eGFR 06/21/2025 06/21/2024, 07/2024, 05/23/2024, Additional history exists Colon Cancer Screening-CT Colonography Discontinued 09/07/2013 Colon Cancer Screening-DNA Stool Discontinued 09/07/2013 Colon Cancer Screening-FIT Discontinued 09/07/2013 Colon Cancer Screening-Sigmoidoscopy Discontinued 09/07/2013 Hepatitis C Screening Completed 07/12/2014 Zoster Vaccine Completed 06/28/2021, 04/2021, 04/21/2021 Pneumococcal vaccine 65+ Completed 08/19/2022, 02/17 Influenza Vaccine Completed 02/12/2024, , 02/02/2022, Additional history exists Goals Goal Patient Goal Type Associated Problems [...] POCT GLUCOSE DEVICE Routine 06/21/2024 6:11 PM KEYBOARDING TEACHER POTASSIUM LEVEL Timed 06/21/2024 5:32 PM KEYBOARDING TEACHER POCT GLUCOSE DEVICE Routine 06/21/2024 2:09 PM KEYBOARDING TEACHER ADD ON LAB TEST Add-On 06/21/2024 1:30 PM KEYBOARDING TEACHER ADD ON LAB TEST Add-On 06/21/2024 1:30 PM KEYBOARDING TEACHER POCT GLUCOSE DEVICE Routine 06/21/2024 10:18 AM KEYBOARDING TEACHER POCT GLUCOSE DEVICE Routine 06/21/2024 6:26 AM KEYBOARDING TEACHER THYROID FUNCTION CASCADE Routine 06/21/2024 4:47 AM KEYBOARDING TEACHER CREATINE KINASE (CK), TOTAL Routine 06/21/2024 4:47 AM KEYBOARDING TEACHER EGFR Routine 06/21/2024 4:47 AM KEYBOARDING TEACHER DIFFERENTIAL AUTO Routine 06/21/2024 4:47 AM KEYBOARDING TEACHER CBC WITH AUTO DIFFERENTIAL Routine 06/21/2024 4:47 AM KEYBOARDING TEACHER MAGNESIUM Routine 06/21/2024 4:47 AM KEYBOARDING TEACHER BASIC METABOLIC PANEL Routine 06/21/2024 4:47 AM KEYBOARDING TEACHER POCT GLUCOSE DEVICE Routine 06/21/2024 3:39 AM KEYBOARDING TEACHER POCT GLUCOSE DEVICE Routine 06/21/2024 12:42 AM KEYBOARDING TEACHER ECG 12-LEAD STAT 06/20/2024 11:[address] HEAD WO CONTRAST ED 06/20/2024 11:22 PM KEYBOARDING TEACHER TROPONIN T HIGH-SENSITIVITY 2-HOUR Timed 06/20/2024 10:42 PM KEYBOARDING TEACHER RESPIRATORY PATHOGEN PANEL STAT 06/20/2024 10:42 PM KEYBOARDING TEACHER EGFR STAT 06/20/2024 8:43 PM KEYBOARDING TEACHER DIFFERENTIAL AUTO STAT 06/20/2024 8:43 PM KEYBOARDING TEACHER PRO B-TYPE NATRIURETIC PEPTIDE STAT 06/20/2024 8:43 PM KEYBOARDING TEACHER TROPONIN T HIGH-SENSITIVITY SERIES (BASELINE, 2HR, 4HR, 6HR) STAT 06/20/2024 8:43 PM KEYBOARDING TEACHER CBC WITH AUTO DIFFERENTIAL STAT 06/20/2024 8:43 PM KEYBOARDING TEACHER COMPREHENSIVE METABOLIC PANEL STAT 06/20/2024 8:43 PM KEYBOARDING TEACHER XR CHEST PA LATERAL 2 VIEWS ED 06/20/2024 8:23 PM KEYBOARDING TEACHER POCT GLUCOSE DEVICE Routine 06/20/2024 6:58 PM KEYBOARDING TEACHER ECG 12-LEAD STAT 06/20/2024 6:49 PM KEYBOARDING TEACHER HEMOGLOBIN A1C Routine 05/23/2024 8:38 AM KEYBOARDING TEACHER Diabetic polyneuropathy associated with type 2 diabetes [...] findings. Electronically signed by: Gagandeep Hart M.D. us Gillian Perea MD IMG XR PROCEDURES Final Result * POCT glucose (06/21/2024 6:11 PM KEYBOARDING TEACHER) [facility] Signature Glucose, POC 168 70 - 199 mg/dL Comment: For Glucose values <35 mg/dl when Hematocrit is >60 mg/dl,the test may not accurately detect significant hypoglycemia,and testing in the Laboratory should be considered if clinically indicated. Blood 06/21/2024 6:11 PM KEYBOARDING TEACHER 06/21/2024 6:11 PM KEYBOARDING TEACHER Dustin Bishop MD LAB POCT ORDERABLES - DEVICE Fin al Result [facility] [address] [place] [address] * Potassium (06/21/2024 5:32 PM KEYBOARDING TEACHER) Potassium, pl 3.4 3.3 - 4.9 mmol/L Blood 06/21/2024 5:32 PM KEYBOARDING TEACHER 06/21/2024 5:36 PM KEYBOARDING TEACHER Dustin Bishop MD LAB BLOOD ORDERABLES Final Resul t Performing Organization Address [facility] de Phone Number [facility] [address] [place] [address] * POCT glucose (06/21/2024 2:09 PM KEYBOARDING TEACHER) [facility] Glucose, POC 171 70 - 199 mg/dL Comment: For Glucose values <35 mg/dl when Hematocrit is >60 mg/dl,the test may not accurately detect significant hypoglycemia,and testing in the Laboratory should be considered if clinically indicated. Blood 06/21/2024 2:09 PM KEYBOARDING TEACHER 06/21/2024 2:09 PM KEYBOARDING TEACHER Result [facility] Dustin Bishop MD LAB POCT ORDERABLES - DEVICE Fin al Result Performing Organization Address [facility] de Phone Number [facility] [address] [place] [address] * TSH reflex Free T4 - Add on lab test (06/21/2024 1:30 PM KEYBOARDING TEACHER) [facility] Acceptable Yes Blood 06/21/2024 1:30 PM KEYBOARDING TEACHER 06/21/2024 1:44 PM KEYBOARDING TEACHER Narrative [facility] - 06/21/2024 1:44 PM KEYBOARDING TEACHER Name of Test->TSH reflex Free T4 Dustin Bishop MD LAB BLOOD ORDERABLES Final Resul t Performing Organization Address [facility] Co de Phone Number [facility] [address] Department [place] [facility] [address] * CK - Add on lab test (06/21/2024 1:30 PM KEYBOARDING TEACHER) Acceptable Yes Blood 06/21/2024 1:30 PM KEYBOARDING TEACHER 06/21/2024 1:44 PM KEYBOARDING TEACHER Narrative [facility] - 06/21/2024 1:44 PM KEYBOARDING TEACHER Name of Test->CK Dustin Bishop MD LAB BLOOD ORDERABLES Final Resul t Performing Organization Address [facility] Co de Phone Number [facility] [address] [place] [address] * POCT glucose (06/21/2024 10:18 AM KEYBOARDING TEACHER) Glucose, POC 188 70 - 199 mg/dL Comment: For Glucose values <35 mg/dl when Hematocrit is >60 mg/dl,the test may not accurately detect significant hypoglycemia,and testing in the Laboratory should be considered if clinically indicated. Blood 06/21/2024 10:1 8 AM KEYBOARDING TEACHER 06/21/2024 10:18 AM KEYBOARDING TEACHER Dustin Bishop MD LAB POCT ORDERABLES - DEVICE Fin al Result Performing Organization Address [facility] Co de Phone Number [facility] [address] Department [place] [address] * POCT glucose (06/21/2024 6:26 AM KEYBOARDING TEACHER) Glucose, POC 157 70 - 199 mg/dL Comment: For Glucose values <35 mg/dl when Hematocrit is >60 mg/dl,the test may not accurately detect significant hypoglycemia,and testing in the Laboratory should be considered if clinically indicated. Blood 06/21/2024 6:26 AM KEYBOARDING TEACHER 06/21/2024 6:26 AM KEYBOARDING TEACHER Benoit Castillo DO LAB POCT ORDERABLES - DEVICE Final Result Performing Organization Address [facility] Co de Phone Number [facility] [address] Department [place] [address] * (ABNORMAL) eGFR (06/21/2024 4:47 AM KEYBOARDING TEACHER) Pathologist [facility] [place] eGFR 59(L) >=60 mL/min/1. 73 m2 Comment: [...] last reviewed 2021. Blood 06/21/2024 4:47 AM KEYBOARDING TEACHER 06/21/2024 5:22 AM KEYBOARDING TEACHER Benoit Castillo DO LAB BLOOD ORDERABLES F inal Result Performing Organization Address [facility] Co de Phone Number [facility] [address] Department [place] [address] * (ABNORMAL) Differential, auto (06/21/2024 4:47 AM KEYBOARDING TEACHER) Pathologist [facility] [place] Neutrophil abs 9.4(H) 1.5 - 6.5 K/cumm Imm gran abs 0.1 0.0 - 0.1 K/cumm [facility] Lymphocyte abs 2.9 0.8 - 3.3 K/cumm [facility] Monocyte abs 2.2(H) 0.2 - 0.8 K/cumm [facility] Eosinophil abs 0.1 0.0 - 0.5 K/cumm [facility] Basophil abs 0.1 0.0 - 0.1 K/cumm [facility] Neutrophil pct 63.9 % [facility] Comment: Interpretive Data Percent cell count reference ranges are not reported, since discordance with absolute values may lead to misinterpretation of CBC data. Current Interpretive Data was last revised on 2017. Imm gran pct 0.5 % [facility] Comment: Interpretive Data Percent cell count reference ranges are not reported, since discordance with absolute values may lead to misinterpretation of CBC data. Current Interpretive Data was last revised on 2017. Lymphocyte pct 19.7 % [facility] Comment: Interpretive Data Percent cell count reference ranges are not reported, since discordance with absolute values may lead to misinterpretation of CBC data. Current Interpretive Data was last revised on 2017. Monocyte pct 14.7 % [facility] Comment: Interpretive Data Percent cell count reference ranges are not reported, since discordance with absolute values may lead to misinterpretation of CBC data. Current Interpretive Data was last revised on 2017. Eosinophil pct 0.8 % [facility] Comment: Interpretive Data Percent cell count reference ranges are not reported, since discordance with absolute values may lead to misinterpretation of CBC data. Current Interpretive Data was last revised on 2017. Basophil pct 0.4 % [facility] Comment: Interpretive Data Percent cell count reference ranges are not reported, since discordance with absolute values may lead to misinterpretation of CBC data. Current Interpretive Data was last revised on 2017. Blood 06/21/2024 4:47 AM KEYBOARDING TEACHER 06/21/2024 5:22 AM KEYBOARDING TEACHER us Benoit Castillo DO LAB BLOOD ORDERABLES F inal Result [facility] [address] Department [place] [address] * Thyroid Function [place] (06/21/2024 4:47 AM KEYBOARDING TEACHER) TSH 0.64 0.30 - 4.20 mcIUnit/mL Blood 06/21/2024 4:47 AM KEYBOARDING TEACHER 06/21/2024 5:22 AM KEYBOARDING TEACHER Dustin Bishop MD LAB BLOOD ORDERABLES Final Resul t Performing Organization Address [facility] Co de Phone Number [facility] [address] [place] [address] * (ABNORMAL) CBC with auto differential (06/21/2024 4:47 AM KEYBOARDING TEACHER) WBC 14.8(H) 3.8 - 9.9 K/cumm Hgb 9.3(L) 11.9 - 15.5 g/dL [facility] Hct 28.7(L) 35.6 - 45.5 % [facility] Plt 241 150 - 400 K/cumm [facility] MPV 10.8 9.1 - 12.3 fL [facility] RBC 3.03(L) 3.90 - 5.20 M/cumm [facility] MCV 94.7 81.3 - 96.4 fL [facility] MCH 30.7 27.1 - 33.3 pg [facility] MCHC 32.4 32.3 - 35.7 g/dL [facility] RDW CV 12.7 11.1 - 14.9 % [facility] RDW SD 44.1 35.7 - 48.1 fL [facility] NRBC abs 0.00 0.00 - 0.01 K/cumm [facility] Blood 06/21/2024 4:47 AM KEYBOARDING TEACHER 06/21/2024 5:22 AM KEYBOARDING TEACHER Benoit Castillo DO LAB BLOOD ORDERABLES F inal Result Performing Organization Address [facility] General/[facility]/ZIP Co de Phone Number [facility] [address] Department of [employer] [place], [place] [id number] * Magnesium (06/21/2024 4:47 AM KEYBOARDING TEACHER) Magnesium 1.8 1.4 - 2.5 mg/dL Blood 06/21/2024 4:47 AM KEYBOARDING TEACHER 06/21/2024 5:22 AM KEYBOARDING TEACHER Benoit Castillo DO LAB BLOOD ORDERABLES F inal Result Performing Organization Address [facility]/ZIP Co de Phone Number [facility] [address] [place] [address] * Creatine kinase (CK), total (06/21/2024 4:47 AM KEYBOARDING TEACHER) CK 169 30 - 200 Units/L Blood 06/21/2024 4:47 AM KEYBOARDING TEACHER 06/21/2024 5:22 AM KEYBOARDING TEACHER Dustin Bishop MD LAB BLOOD ORDERABLES Final Resul t Performing Organization Address [facility] Co de Phone Number [facility] [address] Department [place] [address] * (ABNORMAL) Basic metabolic panel (06/21/2024 4:47 AM KEYBOARDING TEACHER) Sodium 138 135 - 145 mmol/L Potassium, pl 2.5(C) 3.3 - 4.9 mmol/L [facility] Comment:Critical result call ed to and read back by Cm Arroyo (RN) on 06/21/24 @ 0605 to [email or web address] Chloride 100 97 - 110 mmol/L [facility] CO2 26 22 - 32 mmol/L [facility] Anion gap 12 2 - 15 mmol/L [facility] BUN 22 6 - 25 mg/dL [facility] Creatinine 1.05 0.60 - 1.10 mg/dL [facility] Glucose 171 70 - 199 mg/dL [facility] Comment: Interpretive Data Fasting glucose >/= 126 [...] 2022. Calcium 8.2(L) 8.5 - 10.3 mg/dL [facility] Blood 06/21/2024 4:47 AM KEYBOARDING TEACHER 06/21/2024 5:22 AM KEYBOARDING TEACHER Result Roberts Chapeljuan Castillo LAB BLOOD ORDERABLES F inal Result Performing Organization Address [facility] Co de Phone Number [facility] [address] Department [place] [address] * (ABNORMAL) POCT glucose (06/21/2024 3:39 AM KEYBOARDING TEACHER) Glucose, POC 236(H) 70 - 199 mg/dL Comment: For Glucose values <35 mg/dl when Hematocrit is >60 mg/dl,the test may not accurately detect significant hypoglycemia,and testing in the Laboratory should be considered if clinically indicated. Blood 06/21/2024 3:39 AM KEYBOARDING TEACHER 06/21/2024 3:39 AM KEYBOARDING TEACHER Result [facility] Benoit Castillo [facility] POCT ORDERABLES - DEVICE Final Result Performing Organization Address [facility] Co de Phone Number [facility] [address] Department [place] [address] * POCT glucose (06/21/2024 12:42 AM KEYBOARDING TEACHER) Glucose, POC 189 70 - 199 mg/dL Comment: For Glucose values <35 mg/dl when Hematocrit is >60 mg/dl,the test may not accurately detect significant hypoglycemia,and testing in the Laboratory should be considered if clinically indicated. Blood 06/21/2024 12:4 2 AM KEYBOARDING TEACHER 06/21/2024 12:42 AM KEYBOARDING TEACHER Result [facility] Anamika Barbosa MD LAB POCT ORDERABLES - DEVICE Final Result Performing Organization Address [facility] Co de Phone Number [facility] [address] [place] [address] * ECG 12 lead (06/20/2024 11:24 PM KEYBOARDING TEACHER) 06/20/2024 11:2 4 PM KEYBOARDING TEACHER Narrative [facility] - 06/21/2024 6:53 PM KEYBOARDING TEACHER Vent Rate: 94 bpm RR Interval: 636 msec GA Interval: 134 msec QRS Duration: 85 msec QT Interval: 305 msec QTC Interval: 357 msec P-R-T Linch: -14 - -14 - 35 degrees IMPRESSION: SINUS RHYTHM WITH FREQUENT VENTRICULAR PREMATURE COMPLEXES IN A PATTERN OF QUADRIGEMINY LOW QRS VOLTAGE IN PRECORDIAL LEADS LEFT VENTRICULAR HYPERTROPHY AND ST-T CHANGE POOR R-WAVE PROGRESSION ABNORMAL ECG Electronically Signed By: Claus Davis MD [facility] Anamika Barbosa MD ECG ORDERABLES Final Result Performing Organization Address [facility] Co de Phone Number Yunait [employer] [facility] * CT Head WO Contrast (06/20/2024 11:22 PM KEYBOARDING TEACHER) Anatomical Region Laterality Modality Head and Neck N/A Computed Tomogra phy 06/20/2024 11:1 4 PM KEYBOARDING TEACHER Impressions 06/21/2024 8:19 AM KEYBOARDING TEACHER No acute intracranial abnormality. Electronically signed by: Rohith Funez MD Narrative 06/21/2024 8:19 AM KEYBOARDING TEACHER EXAMINATION: CT head without contrast HISTORY: Dizziness, [...] abnormality. Electronically signed by: Rohith Funez MD us Anamika Barbosa MD IMG CT PROCEDURES Fin al Result * (ABNORMAL) Troponin T high-sensitivity 2-hour (06/20/2024 10:42 PM KEYBOARDING TEACHER) Pathologist [facility] [place] Trop T hs 20(H) <=14 ng/L Comment: Interpretive Data For further hscTnT resources including the diagnostic algorithm and an aid in interpretation, copy and paste this link: https://nrl.testcatalog.org/show/hsTrop Current Interpretive Data last revised 2020. Trop T hs delta 2 ng/L [facility] Trop T hs interp Insignificant [facility] Blood 06/20/2024 10:4 2 PM KEYBOARDING TEACHER 06/20/2024 10:54 PM KEYBOARDING TEACHER us Sandra Aceves MD LAB BLOOD ORDERABLES Final Result [facility] [address] [place] [address] * Respiratory pathogen panel Nasopharyngeal (06/20/2024 10:42 PM KEYBOARDING TEACHER) [facility] Influenza A RNA Not Detected Not Detected [facility] Influenza B RNA Not Detected Not Detected [facility] RSV RNA Not Detected Not Detected [facility] COVID-19 RNA Not Detected Not Detected [facility] Coronavirus 229E RNA Not Detected Not Detected [facility] Coronavirus HKU1 RNA Not Detected Not Detected [facility] Coronavirus NL63 RNA Not Detected Not Detected [facility] Coronavirus OC43 RNA Not Detected Not Detected [facility] Adenovirus DNA Not Detected Not Detected [facility] Metapneumovirus RNA Not Detected Not Detected [facility] Rhinovirus/Enterov irus RNA Not Detected Not Detected [facility] Parainfluenza 1 RNA Not Detected Not Detected [facility] Parainfluenza 2 RNA Not Detected Not Detected [facility] Parainfluenza 3 RNA Not Detected Not Detected [facility] Parainfluenza 4 RNA Not Detected Not Detected [facility] B. pertussis DNA Not Detected Not Detected [facility] B. parapertussis DNA Not Detected Not Detected [facility] C. pneumoniae DNA Not Detected Not Detected [facility] M. pneumoniae DNA Not Detected Not Detected [facility] Comment: Interpretive Data The Marvin FilmArray Respiratory Panel (RP2.1) assay is a [...] assay has FDA clearance for testing of PLOW SHAKER swabs. The performance characteristics of this assay have been determined by [facility]. Current interpretive data was last revised on 2020. Nasopharyngeal 06/20/2024 10 :42 PM KEYBOARDING TEACHER 06/20/2024 11:01 PM KEYBOARDING TEACHER Narrative [facility] - 06/20/2024 11:57 PM KEYBOARDING TEACHER Is the Patient experiencing symptoms consistent with COVID?->Yes Surveillance testing for transplant patient?->No Anamika Barbosa MD LAB MICROBIOLOGY - [facility] ORDERABLES Final Result [facility] [address] Department [place] [address] [facility] * (ABNORMAL) Troponin T high-sensitivity series (baseline, 2hr, 4hr, 6hr) (06/20/2024 8:43 PM KEYBOARDING TEACHER) Trop T hs 18(H) <=14 ng/L Comment: Interpretive Data For further hscTnT resources including the diagnostic algorithm and an aid in interpretation, copy and paste this link: https://nrl.testcatalog.org/show/hsTrop Current Interpretive Data last revised 2020. Blood 06/20/2024 8:43 PM KEYBOARDING TEACHER 06/20/2024 8:58 PM KEYBOARDING TEACHER us Sandra Aceves MD LAB BLOOD ORDERABLES Final Result Performing Organization Address City/[facility]/ZIP Co de Phone Number [facility] [address] Department [place] [address] * eGFR (06/20/2024 8:43 PM KEYBOARDING TEACHER) eGFR 76 >=60 mL/min/1. 73 m2 Comment: [...] last reviewed 2021. Blood 06/20/2024 8:43 PM KEYBOARDING TEACHER 06/20/2024 8:58 PM KEYBOARDING TEACHER us Sandra Aceves MD LAB BLOOD ORDERABLES Final Result Performing Organization Address [facility]/ZIP Co de Phone Number [facility] [address] Department [place] [address] * (ABNORMAL) Differential, auto (06/20/2024 8:43 PM KEYBOARDING TEACHER) Pathologist [facility] [place] Neutrophil abs 12.8(H) 1.5 - 6.5 K/cumm Imm gran abs 0.2(H) 0.0 - 0.1 K/cumm [facility] Lymphocyte abs 3.9(H) 0.8 - 3.3 K/cumm [facility] Monocyte abs 2.8(H) 0.2 - 0.8 K/cumm [facility] Eosinophil abs 0.0 0.0 - 0.5 K/cumm [facility] Basophil abs 0.1 0.0 - 0.1 K/cumm [facility] Neutrophil pct 64.9 % [facility] Comment: Interpretive Data Percent cell count reference ranges are not reported, since discordance with absolute values may lead to misinterpretation of CBC data. Current Interpretive Data was last revised on 2017. Imm gran pct 0.9 % [facility] Comment: Interpretive Data Percent cell count reference ranges are not reported, since discordance with absolute values may lead to misinterpretation of CBC data. Current Interpretive Data was last revised on 2017. Lymphocyte pct 19.6 % [facility] Comment: Interpretive Data Percent cell count reference ranges are not reported, since discordance with absolute values may lead to misinterpretation of CBC data. Current Interpretive Data was last revised on 2017. Monocyte pct 13.9 % [facility] Comment: Interpretive Data Percent cell count reference ranges are not reported, since discordance with absolute values may lead to misinterpretation of CBC data. Current Interpretive Data was last revised on 2017. Eosinophil pct 0.2 % [facility] Comment: Interpretive Data Percent cell count reference ranges are not reported, since discordance with absolute values may lead to misinterpretation of CBC data. Current Interpretive Data was last revised on 2017. Basophil pct 0.5 % [facility] Comment: Interpretive Data Percent cell count reference ranges are not reported, since discordance with absolute values may lead to misinterpretation of CBC data. Current Interpretive Data was last revised on 2017. Blood 06/20/2024 8:43 PM KEYBOARDING TEACHER 06/20/2024 8:58 PM KEYBOARDING TEACHER us Sandra Aceves MD LAB BLOOD ORDERABLES Final Result [facility] [address] Department [place] [address] * Pro B-type natriuretic peptide (06/20/2024 8:43 PM KEYBOARDING TEACHER) NT-proBNP 141 <=300 pg/mL Comment: Interpretive Comments: [...] well as advanced age. - References: 1. Celia AVILA et.al. Eur Heart J. 2006:27:330-337. 2. Reagan RW, Loulou AM. J. AM Ananya Cardiol: Cardiovasc Imag. 2009;2: 216- 225. Interpretive Data Last Revised Date: 2017. Blood 06/20/2024 8:43 PM KEYBOARDING TEACHER 06/20/2024 8:58 PM KEYBOARDING TEACHER us Snadra Aceves MD LAB BLOOD ORDERABLES Final Result [facility] [address] [place] [address] * (ABNORMAL) CBC with auto differential (06/20/2024 8:43 PM KEYBOARDING TEACHER) Pathologist [facility] [place] WBC 19.8(H) 3.8 - 9.9 K/cumm Hgb 11.6(L) 11.9 - 15.5 g/dL [facility] Hct 34.1(L) 35.6 - 45.5 % [facility] Plt 302 150 - 400 K/cumm [facility] MPV 10.6 9.1 - 12.3 fL [facility] RBC 3.70(L) 3.90 - 5.20 M/cumm [facility] MCV 92.2 81.3 - 96.4 fL [facility] MCH 31.4 27.1 - 33.3 pg [facility] MCHC 34.0 32.3 - 35.7 g/dL [facility] RDW CV 12.7 11.1 - 14.9 % [facility] RDW SD 42.9 35.7 - 48.1 fL [facility] NRBC abs 0.00 0.00 - 0.01 K/cumm [facility] Blood 06/20/2024 8:43 PM KEYBOARDING TEACHER 06/20/2024 8:58 PM KEYBOARDING TEACHER us Sandra Aceves MD LAB BLOOD ORDERABLES Final Result [facility] [address] [place] [address] * (ABNORMAL) Comprehensive metabolic panel (06/20/2024 8:43 PM KEYBOARDING TEACHER) Sodium 136 135 - 145 mmol/L Potassium, pl 3.4 3.3 - 4.9 mmol/L [facility] Chloride 95(L) 97 - 110 mmol/L [facility] CO2 22 22 - 32 mmol/L [facility] Anion gap 19(H) 2 - 15 mmol/L [facility] BUN 19 6 - 25 mg/dL [facility] Creatinine 0.85 0.60 - 1.10 mg/dL [facility] Glucose 176 70 - 199 mg/dL [facility] Comment: Interpretive Data Fasting glucose >/= 126 [...] 2022. Calcium 8.8 8.5 - 10.3 mg/dL [facility] Bilirubin, total 0.9 0.1 - 1.2 mg/dL [facility] Protein, pl 6.6 6.5 - 8.5 g/dL [facility] Albumin 3.7 3.5 - 5.0 g/dL [facility] Alk phos 37(L) 40 - 130 Units/L [facility] ALT 14 7 - 45 Units/L [facility] AST 19 10 - 45 Units/L [facility] Comment:Slightly Hemolyzed S pecimen Blood 06/20/2024 8:43 PM KEYBOARDING TEACHER 06/20/2024 8:58 PM KEYBOARDING TEACHER Sandra Aceves MD LAB BLOOD ORDERABLES Final Result [facility] [address] Department [place] [address] * XR Chest PA Lateral 2 Views (06/20/2024 8:23 PM KEYBOARDING TEACHER) Anatomical Region Laterality Modality Body, Chest N/A Computed Radiogr aphy 06/21/2024 10:1 5 AM KEYBOARDING TEACHER Impressions 06/21/2024 4:32 PM KEYBOARDING TEACHER There are cholecystectomy clips. The lungs are clear. No pleural effusion or pneumothorax. Normal cardiomediastinal silhouette. Dictated by: Hari Fernandez MD The radiology attending physician has personally reviewed this study, and had reviewed and/or edited this written report and agrees with it. Electronically signed by: Brandon Sapp M.D. Narrative 06/21/2024 4:32 PM KEYBOARDING TEACHER EXAMINATION: XR CHEST PA LATERAL 2 VIEWS [...] ult * POCT glucose (06/20/2024 6:58 PM KEYBOARDING TEACHER) [facility] Glucose, POC 195 70 - 199 mg/dL Comment: For Glucose values <35 mg/dl when Hematocrit is >60 mg/dl,the test may not accurately detect significant hypoglycemia,and testing in the Laboratory should be considered if clinically indicated. Blood 06/20/2024 6:58 PM KEYBOARDING TEACHER 06/20/2024 6:58 PM KEYBOARDING TEACHER us Notinfile Unknown LAB POCT ORDERABLES - DEVICE F inal Result Performing Organization Address City/[facility]/ZIP Co de Phone Number [facility] [address] [place] [address] * ECG 12 lead (06/20/2024 6:49 PM KEYBOARDING TEACHER) 06/20/2024 6:49 PM KEYBOARDING TEACHER Narrative [facility] - 06/21/2024 3:20 PM KEYBOARDING TEACHER Vent Rate: 96 bpm RR Interval: 623 msec GA Interval: 138 msec QRS Duration: 89 msec QT Interval: 322 msec QTC Interval: 375 msec P-R-T Linch: -9 - -14 - 53 degrees IMPRESSION: SINUS RHYTHM POSSIBLE INFERIOR MYOCARDIAL INFARCTION POOR R-WAVE PROGRESSION ABNORMAL ECG Electronically Signed By: Claus Davis MD [facility] Anamika Barbosa MD ECG ORDERABLES Final Result Performing Organization Address City/[facility]/ZIP Co de Phone Number [facility] [employer] [facility] * (ABNORMAL) Hemoglobin A1c (05/23/2024 8:38 AM KEYBOARDING TEACHER) [facility] Hgb A1C 6.3(H) 4.0 - 5.6 % Estimated Average Glucose 134 mg/dL [facility] Comment: The ADA recommends reporting an estimated Average Glucose (eAG) with all Hemoglobin A1c results using the equation derived from a study of 507 normal and diabetic adults. Minority populations were underrepresented and children were not included. (Diabetes Care 31:9599-2860, 2008). The eAG is not equivalent to a fasting glucose. Blood 05/23/2024 8:38 AM KEYBOARDING TEACHER 05/23/2024 8:38 AM KEYBOARDING TEACHER us Gillian Perea MD LAB BLOOD ORDERABLES Final Resu lt Performing Organization Address [facility] Co de Phone Number [facility] [address] [employer] [place], [place] [id number] * Albumin Creatinine Ratio, Urine (01/11/2024 7:04 PM CDT) [facility] Albumin Ur 18.5 mg/L Comment: Interpretive Data No reference range established. Current interpretive data was last revised 2018. Creatinine Ur 214.5 mg/dL [facility] Comment: Interpretive Data No reference range established. Current interpretive data was last revised 2018. Albumin Creatinine Ratio, Ur 9 1 - 29 mg/g [facility] Urine 01/11/2024 7:04 PM CDT 01/11/2024 7:04 PM CDT us Gillian Perea MD LAB URINE ORDERABLES Final Resu lt Performing Organization Address [facility] Co de Phone Number [facility] [address] Department [employer] [place], [place] [id number] * (ABNORMAL) Lipid panel (01/11/2024 2:27 PM CDT) [facility] Cholesterol 127 30 - 199 mg/dL Comment: [...] revised on 2017. Triglycerides 170(H) <=149 mg/dL [facility] Comment: Interpretive Data Ages < or = [...] revised on 2017. HDL 64 >=40 mg/dL [facility] Comment: Interpretive Data Ages < or = [...] on 2017. LDL, calculated 36 <=129 mg/dL [facility] Comment: Interpretive Data Ages < or = 19 years Acceptable: <110 mg/dL Borderline high: 110-129 mg/dL High: >or= 130 mg/dL Ages > or = 20 years Optimal: <100 mg/dL Near optimal: 100-129 mg/dL Borderline high: 130-159 mg/dL High: >160 mg/dL Calculated using the Walker LDL-C estimating equation. This equation was implemented on 2023. Prior to this date LDL-C was estimated using the Friedewald equation. Literature References: 1. Expert Panel on Integrated Guidelines for Cardiovascular Health and Risk Reduction in Children and Adolescents. Pediatrics 2011;128:S213 2. NCEP Expert Panel. Circulation 2004;110:227 3. Aaron M et al. NILA Cardiol. 2019August 17;5(5):540-548. doi: 10.1001/jamacardio.2020.0013 Current Interpretive Data was last revised on 2023. Non-HDL Cholesterol 63 mg/dL [facility] Comment: Interpretive Data Ages < or = [...] last revised on 2017. Chol/HDL ratio 2 [facility] Blood 01/11/2024 2:27 PM CDT 01/11/2024 7:04 PM CDT Gillian Perea MD LAB BLOOD ORDERABLES Final Resu lt [facility] [address] Department [place] [address] * Diabetic Eye Exam (03/16/2023) Historical Provider [...] compared to prior imaging studies performed at [facility] on 01/26/2011 and 03/28/2012, and at [facility] on 07/12/2014. The breasts are almost [...] compared to prior imaging studies performed at [facility] on 01/26/2011 and 03/28/2012, and at [facility] on 07/12/2014. The breasts are almost [...] to request sample to be sent to [facility] for Hepatitis C Virus (HCV) RNA Detection and Quantitation by Real-Time Reverse Hand Tufter-PCR (RT-PCR). Current interpretive data was last revised on 2011 us Ngozi Richards MD LAB BLOOD ORDERABLES Fin al Result HISTORICAL RESULTS * COLONOSCOPY REPORT (09/07/2013) Anatomical Region Laterality Modality Other Narrative 09/07/2013 Ordered by an unspecified provider. us Historical Provider MD G[facility] PROCEDURE ORDERABLES F inal Result from Last 3 Months or Most Recently Relevant to Health Maintenance Insurance [facility] [employer] H[employer]/PPO Address: [address] [address] [place] [address] [facility] [employer] [facility] Advance Directives For more information, please contact: [phone] * Full Code (Latest Code Status on File) Date Activated Date Inactivated Comments 06/21/2024 3:32 AM 06/21/2024 11:03 PM * Full Code Date Activated Date Inactivated Comments 06/02/2018 2:30 PM 06/02/2018 7:25 PM Care Teams Department Chair Relationship Specialty Start Date End Date Gillian Perea MD [address] [address] PCP - General Family Medicine 04/14/23 Maximus Doan MD PhD [address] [place] [address] Medical Oncologist/Tax Examining Technician Hematology and Oncology 08/28/22 Morena Quach NP [address] [place] [address] Nurse Practitioner Internal Medicine 08/28/22
--- OUTSIDE RECORDS SUMMARY | 2024-09-14 13:40 | XMS_ITS | Encounter Summary ---
Author Organization [facility] Address 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 - [facility] [employer] [id number] [facility] [id number] [address] Abel Fuentes MD [address] [facility] [id number] [place] [address] Routine Gynecological Examination Social History Tobacco Use Types Packs/Day Years Used Date Smoking Tobacco: Never Assessed Comments Unknown Sex and Gender Information Value Date Recorded Sex Assigned at Not on file Legal Sex Female 5:35 AM MANAGER COMPENSATION Gender Identity Not on file Sexual Orientation Not on file documented as of this encounter Plan of Treatment Not on file documented as of this encounter Procedures Procedure Name Priority Date/Time Associated Diagnosis Comments CERV/VAG CYTOPATH, SUREPATH W/RFLX HPV Routine 02/20/2008 10:55 PM MANAGER COMPENSATION documented in this encounter Results * CERV/VAG CYTOPATH, SUREPATH W/RFLX HPV (02/20/2008 10:55 PM MANAGER COMPENSATION) SOURCE Cervix, Endocervix S [facility] LAST MENSTRUAL PERIOD 02-11-08 [facility] REPORT STATUS [facility] CLINICAL INFORMATION Normal exam [facility] CYTOTECHNOLOGI ST: MLO, CT(ASCP) [facility] Comment: Lab test performed by: [facility] [address] [address] EL NATH MD PAP INTERP Negative for intraepithelial lesion or malignancy. [facility] Can Stacker Pap Comment Based on the cytology result, reflex High Risk HPV DNA testing was not performed. [facility] PREV PAP: INFORMATION NOT PROVIDED [facility] ADEQUACY: Satisfactory for evaluation. Endocervical/trans formation zone component present. [facility] PREV BX: INFORMATION NOT PROVIDED [facility] Specimen from uterine cervix (specimen) 02/20/2008 10:55 PM MANAGER COMPENSATION 02/20/2008 11:20 PM MANAGER COMPENSATION us Abel Fuentes MD PATHOLOGY/CYTOLOGY ORDERABLE S Final Result INTERFACE SYSTEM Refer to clinic/hospital department [facility] CLIA# [id number] [address] [place] [address] documented in this encounter Visit Diagnoses Diagnosis Routine gynecological examination documented in this encounter
[2024-09-14 14:18] LABS: Hematocrit 39.4 % (37.0-47.0); Hemoglobin 12.6 g/dL (12.0-15.0); Mean Corpuscular Hemoglobin 29.6 pg (26-34); Mean Corpuscular Volume 92.7 fl (80-100); Mean Platelet Volume 10.1 fl (7.4-10.4); Platelet Count Result 352 k/mm3 (150-375); Red Blood Count 4.25 M/mm3 (4.2-5.4); Red Cell Distribution Width 12.9 % (11.5-14.5); White Blood Count 11.2 K/mm3 (4.5-10.0)
[2024-09-14 14:28] LABS: Albumin Level 4.3 g/dL (3.5-5.1); Anion Gap 6 mmol/L (4-12); Blood Urea Nitrogen 16 mg/dL (7-17); Calcium 10.1 mg/dL (8.4-10.2); Carbon Dioxide 31 mmol/L (22-30); Chloride 105 mmol/L (98-107); Estimated Glomerular Filt Rate > 60; Glucose 102 mg/dL (65-110); Potassium 4.6 mmol/L (3.4-5.0); Sodium 142 mmol/L (137-145)
[2024-09-14 14:36] LABS: Prealbumin 26.3 mg/dL (17.6-36.0)
[2024-09-14 15:46] LABS: Hemoglobin A1C 6.4 % (<5.7)
== END 2024-09-14 13:30 | disposition home or self-care (01) ==
PROVIDERS: Visit Provider Surgery Plastic and Reconstructive Surgery
DX: E11.9 Type 2 diabetes mellitus without complications (principal)
CPT/HCPCS: 36415; 80048; 82040; 83036; 84134; 85027

== ENCOUNTER 2024-10-11 13:46 | Outpatient (CLI) | payer OTHER, SELFPAY ==
--- NOTE | 2024-10-11 14:00 | ECG_ITS ---
Test Date: 2024-10-11 14:13:26 Measurements Intervals [place] Rate: 66 P: 16 [place]: 151 QRS: -16 QRSD: 88 T: 21 QT: 382 QTc: 402 Interpretive Statements SINUS RHYTHM LEFT VENTRICULAR HYPERTROPHY WITH ST-T CHANGE MINIMAL Q WAVES- HIGH LATERAL LEADS POSSIBLE ANTERIOR MYOCARDIAL INFARCTION BASELINE ARTIFACT- I, II, III, AVR, AVL, AVF ABNORMAL ECG No previous ECG available for comparison Electronically Signed On 10-11-2024 14:31:14 CDT by Jg Tapia D.O.
[2024-10-16 14:28] LABS: Vitamin B1 14 nmol/L (8-30)
== END 2024-10-11 13:47 | disposition home or self-care (01) ==
LOC: ANHSURGERY 13:51
PROVIDERS: Visit Provider Surgery Plastic and Reconstructive Surgery
DX: Z01.818 Encounter for other preprocedural examination (principal); Z41.1 Encounter for cosmetic surgery; R63.4 Abnormal weight loss
CPT/HCPCS: 36415; 84425; 93005